=== PATIENT | female | born 1970 | race Caucasian/White ===

== ENCOUNTER 2023-06-20 10:37 | Outpatient (REF) | payer MEDICAID, SELFPAY ==
--- NOTE | ~2023-06-20 | XR_ITS ---
EXAMINATION: XR FINGER, RIGHT CLINICAL INFORMATION: Fifth digit caught in fence COMPARISON: None available. TECHNIQUE: Three views of the right small finger. FINDINGS: No acute visible fracture or dislocation. Mild multi joint arthritic changes. Sclerotic focus along the humeral head articular surface nonspecific though potentially representing bone island. Joint spaces and alignment are otherwise maintained. Soft tissues are unremarkable. XR/XR finger RT min 2V IMPRESSION: 1. No acute visible fracture or dislocation. 2. Mild multi joint arthritic changes. 3. Sclerotic focus along the humeral head articular surface nonspecific though potentially representing bone island.
== END 2023-06-20 10:38 | disposition home or self-care (01) ==
LOC: HO.HHCX 10:37
PROVIDERS: Visit Provider Emergency Medicine
DX: S69.91XD Unspecified injury of right wrist, hand and finger(s), subsequent encounter (principal)
CPT/HCPCS: 73140

== ENCOUNTER 2023-06-20 11:04 | Outpatient (REF) | payer MEDICAID, SELFPAY | END 2023-06-20 11:05 | disposition home or self-care (01) | LOC: HO.HHCL 11:04 | PROVIDERS: Visit Provider Emergency Medicine | DX: Z13.89 Encounter for screening for other disorder (principal) ==

== ENCOUNTER 2023-06-25 18:19 | Outpatient (REF) | payer MEDICAID, SELFPAY ==
[2023-06-26 14:20] LABS: Adenovirus F 40/41 Not Detected (Not Detect.); Astrovirus Not Detected (Not Detect.); Campylobacter Not Detected (Not Detect.); Cryptosporidium Not Detected (Not Detect.); Cyclospora cayetanensis Not Detected (Not Detect.); E. coli EAEC Not Detected (Not Detect.); E. coli EPEC Not Detected (Not Detect.); E. coli ETEC Not Detected (Not Detect.); E. coli STEC Not Detected (Not Detect.); Entamoeba histolytica Not Detected (Not Detect.); Giardia lamblia Not Detected (Not Detect.); Norovirus GI/GII Not Detected (Not Detect.); Plesiomonas shigelloides Not Detected (Not Detect.); Rotavirus A Not Detected (Not Detect.); Salmonella Not Detected (Not Detect.); Sapovirus Not Detected (Not Detect.); Shigella sp./EIEC Not Detected (Not Detect.); Vibrio Not Detected (Not Detect.); Vibrio Cholerae Not Detected (Not Detect.); Yersinia enterocolitica Not Detected (Not Detect.)
== END 2023-06-25 18:20 | disposition home or self-care (01) ==
LOC: HO.HHCLNP 18:19
PROVIDERS: Visit Provider Emergency Medicine
DX: K58.0 Irritable bowel syndrome with diarrhea (principal)
CPT/HCPCS: 87177; 87209; 87338; 87493; 87507

== ENCOUNTER 2023-08-13 11:54 | Outpatient (REF) | payer MEDICAID, SELFPAY ==
--- NOTE | ~2023-08-13 | XR_ITS ---
EXAMINATION: XR ANKLE, RIGHT CLINICAL INFORMATION: Ankle injury, medial pain, worsening chronic Achilles tendon pain. COMPARISON: None available. TECHNIQUE: 5 views of the right ankle. FINDINGS: Spurring of the medial malleolus. 5 mm ossification adjacent to the medial malleolus, suggestive of sequela of trauma, of indeterminate age. Ankle mortise is maintained. No additional discrete fracture is identified. Anterior calcaneal process, 5th metatarsal base appears intact. Large plantar and posterior calcaneal spur. Chronic-appearing calcification/ossification in the region of the mid/distal Achilles tendon, larger measuring 1.6 cm and 1.7 cm respectively, has a chronic appearance. Tibiotalar joint effusion present. Mild ankle soft tissue swelling. XR/XR ankle RT min 3V IMPRESSION: 5 mm ossification adjacent to medial malleolus, from age indeterminate trauma. Tibiotalar joint effusion. Large plantar and posterior calculus spur. Prominent chronic-appearing calcification/ossification in the region of the Achilles tendon.
== END 2023-08-13 11:55 | disposition home or self-care (01) ==
LOC: HO.HHCX 11:54
PROVIDERS: Visit Provider Emergency Medicine
DX: S99.911A Unspecified injury of right ankle, initial encounter (principal)
CPT/HCPCS: 73610

== ENCOUNTER 2023-09-20 10:45 | Outpatient (AMB) | payer MEDICAID, SELFPAY ==
--- NOTE | 2023-09-20 10:54 | A.OFFVIS_ITS ---
Intake Intake Visit Reasons: Mixed incontinence Intake Note: NEW Patient presents today to established treatment for Mixed Incontinence: Meds- Tolterodine Allergies to Antibiotic- No Known Allergies Blood Thinner- Aspirin PVR- 0 mL Nurse Supervisor Required: No Accompanied by: Self / Same As Patient Allergies No Known Allergies Allergy (Verified 09/20/23 11:04) HPI HPI Comments History of Present Illness Details Kari is a 53-year-old female who presents today to the office to establish as a new patient for an evaluation of mixed urinary incontinence. 09/20/2023-- She is present today for an evaluation of mixed urinary incontinence. She was referred to me by her PCP for urinary incontinence. Patient states that her PCP started on tolterodine 4 mg, which she feels that it is making the symptoms worse. Patient states that her bladder symptoms started in 2009 and she was seen by an urologist in 2010 and had some testing; however, she moved from that location and was not able to follow-up with the urologist. She denies nocturia at this time. She wears pads during the day time, and notes that she is constantly leaking even without sensation of the urgency. She denies any frequent urinary tract infections. She denies burning with urination. She denies hematuria. Patient states that she has had recent surgery on Achilles on 08/23/2023, she currently has a cast which limits the ability to do a pelvic exam at this time. Evaluation today--UA-- leukocytes: 0; blood: 0. Plan: Follow up in office Cystoscopy, will perform pelvic exam at that time. Advised the patient to discontinue tolterodine Ordered renal US. [facility] Surgical History History of myringotomy Hx of adenoidectomy Hx of tonsillectomy Hx of total knee replacement History of open head injury History of surgery of head History of surgery on lower extremity Family History Father Adopted Family history not known due to adoption Mother No problems noted. Social History Alcohol intake: current Alcohol intake frequency: holidays/special occasions only Patient Tobacco Use Status: Former Tobacco user Quit Date: 09/2022 Review of Systems Const All systems reviewed & are unremarkable except as noted in HPI and below Reports no additional complaints Eyes Reports no additional complaints ENT Reports no additional complaints Card Denies dyspnea Resp Denies cough and Denies dyspnea GI Reports no additional complaints Reports no additional complaints Musc Reports no additional complaints Skin/Breast Denies rash and Denies unusual bruising Neuro Reports no additional complaints Psych Reports no additional complaints Endo Reports no additional complaints Buck/Lymph Reports no additional complaints Aller/Immun Reports no additional complaints Physical Exam Const General: cooperative, healthy appearing and no acute distress Orientation/consciousness: patient oriented x3 HEENT Head: Yes normal to inspection, Yes normocephalic and Yes atraumatic Eyes Conjunctivae: conjunctivae normal Neck Neck: Yes normal visual inspection and Yes trachea midline Chest Chest palpation & inspection: normal inspection of the chest Resp Effort & Inspection: normal respiratory effort Cardio Rate: regular rate GI Inspection: Yes normal to inspection Palpation (GI): Soft to palpation Skin General skin exam: no rashes or lesions noted Neuro General: patient oriented x3 Extrem Other: Right lower leg- cast General: No edema Psych Appearance: grossly normal Results AMB Urinalysis, Automated UA Leukoctes 0 Daniel/uL Last Edit by LORETO Anderson on 09/20/23 11:33 UA Nitrite Negative Last Edit by LORETO Anderson on 09/20/23 11:33 UA Urobilinogen 0.2 mg/dL Last Edit by LORETO Anderson on 09/20/23 11:3 3 UA Protein 0 mg/dL Last Edit by LORETO Anderson on 09/20/23 11:33 UA pH 7.5 Last Edit by LORETO Anderson on 09/20/23 11:33 UA Blood 0 Mario/uL Last Edit by LORETO Anderson on 09/20/23 11:33 UA Specific [place] 1.005 Last Edit by LORETO Anderson on 09/20/23 11: 33 UA Ketone Negative Last Edit by LORETO Anderson on 09/20/23 11:33 UA Bilirubin 0 mg/dL Last Edit by LORETO Anderson on 09/20/23 11:33 UA Glucose 0 mg/dL Last Edit by LORETO Anderson on 09/20/23 11:33 Results Reviewed Results Reviewed: Laboratory Last Values Urine pH (Auto) 7.5 09/20/23 11:30 Specific [place] (Auto) 1.005 09/20/23 11:30 Urine Protein (Auto) 0 mg/dL 09/20/23 11:30 Glucose (UA)(Auto) 0 mg/dL 09/20/23 11:30 Urine Ketones (Auto) Negative 09/20/23 11:30 Urine Blood (Auto) 0 Mario/uL 09/20/23 11:30 Urine Nitrite (Auto) Negative 09/20/23 11:30 Urine Bilirubin (Auto) 0 mg/dL 09/20/23 11:30 Urine Urobilinogen (Auto) 0.2 mg/dL 09/20/23 11:30 Leukocyte Esterase (Auto) 0 Daniel/uL 09/20/23 11:30 Assessment & Plan Assessment & Plan (1) Urinary incontinence: Code(s): R32 - Unspecified urinary incontinence (2) Pelvic floor weakness: Code(s): N81.89 - Other female genital prolapse Plan Follow up in office Cystoscopy, will perform pelvic exam at that time. Advised the patient to discontinue tolterodine Ordered renal US. Orders: Orders AMB Urinalysis Automated 09/20/23 Z13.9 - Encounter for screening, unspecified AMB Post Void Residual by ultrasound 09/20/23 N39.8 - Other specified disorders of urinary system Patient Instructions: The patient had an opportunity to ask questions regarding treatment plan. All questions were answered. Imaging, Laboratory studies and physical exam results were discussed and reviewed in detail. No major barriers to understanding were identified. The patient expressed understanding and agreement with the above treatment plan. The patient is aware they should contact our office by phone for worsening of their current condition or the appearance of new symptoms. Compliance is encouraged with any medications and followup testing that is ordered. It is a privilege to be allowed the opportunity to participate in the urologic care of your patient. If you have any questions or concerns regarding treatment for the above conditions please do not hesitate to contact me. The office telephone contact is [phone]. This note is constructed in part using voice recognition software. While every effort has been made to ensure accuracy machine biller errors may have been included. Yours sincerely, Rajeev Xavier MD Coding Level of Care Code New Pt Level 4 (30658) Diagnoses Urinary incontinence R32 Pelvic floor weakness N81.89
== END 2023-09-20 11:47 | disposition home or self-care (01) ==
PROVIDERS: PCP Family Medicine; Visit Provider Urology
DX: R32 Unspecified urinary incontinence (principal); N81.89 Other female genital prolapse
CPT/HCPCS: 99204

== ENCOUNTER → 2023-09-20 10:45 | Outpatient (BNVA) | payer MEDICAID, SELFPAY | PROVIDERS: PCP Family Medicine; Visit Provider Urology | DX: N81.89 Other female genital prolapse (principal); R32 Unspecified urinary incontinence | CPT/HCPCS: 81003; 99202 ==

== ENCOUNTER 2024-03-06 13:07 | Outpatient (REF) | payer MEDICAID, SELFPAY ==
[2024-03-06 14:23] LABS: MANUAL DIFF FLAG NO
[2024-03-06 14:33] LABS: Basophils Percent Auto 0.5 % (0-2); Eosinophils Absolute Auto 0.1 X10*3/uL (0.0-0.4); Eosinophils Percent Auto 1.3 % (0-4); Hematocrit 42.7 % (37.0-47.0); Hemoglobin 13.7 g/dl (12.0-16.0); Imm Gran Abs Auto 0.03 X10*3/uL (0.00-0.03); Imm Gran Pct Auto 0.4 % (0.0-0.4); Lymphocytes Absolute Auto 1.8 X10*3/uL (1.2-4.9); Lymphocytes Percent Auto 21.8 % (20-40); Mean Corpuscular HGB Conc 32.1 g/dl (31.0-35.0); Mean Corpuscular Hemoglobin 28.5 pg (27.0-33.0); Mean Platelet Volume 10.3 fL (9.4-12.3); Monocytes Absolute Auto 0.5 X10*3/uL (0.1-1.2); Monocytes Percent Auto 6.2 % (2-11); Neutrophils Absolute Auto 5.9 x10*3/uL (2.0-8.3); Neutrophils Percent Auto 69.8 % (45-73); Platelet Count 284 X10*3/uL (160-400); White Blood Count 8.4 X10*3/uL (4.8-10.8)
[2024-03-06 16:25] LABS: Alanine Aminotransferase 23 U/L (0-31); Albumin Level 4.4 g/dL (3.5-5.0); Alkaline Phosphatase 70 U/L (39-117); Anion Gap 10 (12-20); Aspartate Amino Transferase 12 U/L (5-31); Bilirubin Total 0.5 mg/dL (0.0-1.0); Blood Urea Nitrogen 19 mg/dL (9-16); C Reactive Protein 2.44 mg/dL (< or = 0.50); Calcium 9.8 mg/dL (8.4-10.2); Carbon Dioxide 31 mmol/L (22-29); Chloride 104 mmol/L (96-108); Cholesterol 196 mg/dL (<200); Estimated Glomerular Filt Rate > 60; Glucose Fasting 101 mg/dL (60-99); HDL Cholesterol 58 mg/dL (>40); LDL Cholesterol Calculated 122 mg/dL (<100); Potassium 3.9 mmol/L (3.3-5.1); Sodium 141 mmol/L (135-145); Total Protein 7.4 g/dL (6.5-8.0); Triglycerides 82 mg/dL (<150)
[2024-03-06 16:32] LABS: TSH reflex Free T4 2.09 uIU/mL (0.32-4.0)
[2024-03-07 19:58] LABS: Transglutaminase Ab IgG <1.0 U/mL
[2024-03-10 11:38] LABS: VITAMIN D (1,25 OH) D3 63 pg/mL; Vit D (1,25-Dihydroxy) Total 63 pg/mL (18-72); Vitamin D (1,25 OH) D2 <8 pg/mL
== END 2024-03-06 13:08 | disposition home or self-care (01) ==
LOC: HO.CHCLDS 13:07
PROVIDERS: Visit Provider Family Medicine
DX: E66.09 Other obesity due to excess calories (principal); Z68.31 Body mass index [BMI] 31.0-31.9, adult; R19.7 Diarrhea, unspecified
CPT/HCPCS: 36415; 80053; 80061; 82652; 84443; 85025; 86140; 86364

== ENCOUNTER 2025-06-30 09:53 | Outpatient (REF) | payer MEDICAID, SELFPAY ==
--- OUTSIDE RECORDS SUMMARY | 2025-06-26 10:00 | XMS_ITS | Encounter Summary ---
Author Organization [facility] Address [address] [place] [address] [address] [place] [address] Care Team Providers Care Mis Director Name Role Phone Linda Leahy MD Primary Care Provider [phone] Reason for Visit * Reason Comments Ear Lavage Encounter Details Date Type Department Care Team (Latest Contact Info) Description 06/26/2025 10:00 AM EDT Clinical Support [facility] [address] [place] [address] Brigitte Segura RN Tinnitus, right ear [H93.11] Social History Tobacco Use Types Packs/Day Years Used Date Smoking Tobacco: Former Cigarettes Passive Smoke Exposure: Past Smokeless Tobacco: Never Depression Answer Date Recorded Patient Health Questionnaire-9 Score 20 06/19/2025 Patient Health Questionnaire-9 Score 20 06/19/2025 Last PHQ-9: Questionnaire Data Not on file 0 06/19/2025 Housing Stability Answer Date Recorded What is your housing situation today? I have housing today, but I am worried about losing housing in the future 06/19/[address] you li ve. Do you have problems with any of the following? None of the above 06/19/2025 Food Insecurity Answer Date Recorded Within the past 12 months, y ou worried that your food would run out before you got money to buy more: Often true 06/19/2025 Within the past 12 months,th e food you bought just didn't last and you didn't have enough money to get more: Often true 06/2025 Transportation Answer Date Recorded In the past 12 months, has l ack of transportation kept you from medical appts, meetings, work or from getting things needed for daily living? Yes, it has kept me from medical appointments or getting medications. 06/19/2025 Utilities Answer Date Recorded In the past 12 months, has t he electric, gas, oil or water company threatened to shut off services in your home? Yes 06/19/2025 Depression Answer Date Recorded Patient Health Questionnaire-2 Score 5 06/19/2025 Internet Access Answer Date Recorded Internet Access Q1 Yes 06/19/2025 Internet Access Q2 Not on file 06/19/2025 Comments Unknown Sex and Gender Information Value Date Recorded Sex Assigned at Female 05/08/2023 9:26 AM EDT Legal Sex Female 9:22 AM EDT Gender Identity Female 05/08/2023 9:26 AM EDT Sexual Orientation Straight 03/10/2024 2: 39 PM EDT documented as of this encounter Progress Notes * Brigitte Segura RN - 06/26/2025 10:00 AM EDT Kari Nelson is a 55 y.o. female who presents today for an ear lavage. Kari Nelson endorses diminishedhearing in the left ear The patient has been using ear drops to loosen wax prior to this visit. Thepatient denies ear pain. Objective Auditory canal(s) of the left ear are completely obstructed with cerumen. Cerumen was removed using gentle irrigation and soft plastic curettes. Irrigated with 1 part water and 1 part hydrogen peroxide. Tympanic membranes are intact following the procedure. Auditory canalsare normal. Assessment/Plan Cerumen Impaction without otitis externa. Care instructions given. Home treatment: none. Follow-up as needed. documented in this encounter Plan of Treatment Upcoming Encounters Date Type Department Care Team (Late st Contact Info) Description 08/21/2025 9:45 AM EDT Office Visit [facility] [address] [place] [address] Linda Leahy MD [address] [place] [address] documented as of this encounter Visit Diagnoses Diagnosis Tinnitus, right ear [H93.11] documented in this encounter Additional Health Concerns Assessment Noted Time PHQ-9 Depression Total Score: 20 025 9:20 AM EDT documented as of this encounter Care Teams Mis Director Relationship Specialty Start Date End Date Linda Leahy MD [address] [place] [address] PCP - General Family Medicine 07/19/23 documented as of this encounter
--- OUTSIDE RECORDS SUMMARY | 2025-06-30 11:03 | XMS_ITS | Clinical Summary ---
Author Organization [facility] Address [address] [facility] [address] [place] [address] Phone Care Team Providers Care Business Applications Manager Name Role Phone Marko Manriquez Tatiana DO Unavailable [phone] Matthias Barber MD Primary Care Prov ider Allergies Active Allergy Reactions Criticality Noted Date Comments Diphenhydramine Unknown 11/08/2010 Oxycodone 05/08/2023 PATIENT DOES NOT WANT ANY NARCOTICS Penicillins Unknown 11/08/2010 Medications orphenadrine (NORFLEX) 100 mg tablet 100 mg daily. Active cyclobenzaprine (FLEXERIL) 10 MG tablet Take 10 mg by mouth 2 (two) times a day as needed. Active fluticasone propionate (FLONASE) 50 mcg/actuation nasal spray 1 spray by Nasal route daily. Active gabapentin (NEURONTIN) 300 MG capsuleIndications :Intractable migraine with aura with status migrainosus,Fibrom yalgia Take 1 capsule (300 mg total) by mouth nightly at bedtime. 90 capsule 3 4 Active tolterodine (DETROL LA) 4 MG 24 hr capsule Take 4 mg by mouth daily. Active terbinafine HCL (LAMISIL) 250 mg tablet Take 1 tablet by mouth every morning. 4 Active naproxen (NAPROSYN) 500 MG tablet Take 500 mg by mouth. 1 Active XOPENEX HFA 45 mcg/actuation inhaler inhale 2 puffs by mouth every 6 hours as needed for shortness of breath Active melatonin 5 mg Tab Take 5 mg by mouth nightly at bedtime as needed. 1 Active omeprazole (PRILOSEC) 20 MG capsule Take 1 capsule by mouth daily as needed. 3 Active diclofenac sodium (VOLTAREN) 75 MG EC tabletIndications: Intractable migraine with aura with status migrainosus Take 1 tablet (75 mg total) by mouth 2 (two) times a day as needed (Migraine). 30 tablet 5 4 Active galcanezumab-gnlm (EMGALITY) 120 mg/mL subcutaneous injectionIndicatio ns:Intractable migraine with aura with status migrainosus Inject 1 mL (120 mg total) under the skin every 30 (thirty) days. 1 mL 11 4 Active rizatriptan (MAXALT-PROFILE GRINDER) 10 MG disintegrating tabletIndications: Intractable migraine with aura with status migrainosus Take 1 tablet (10 mg total) by mouth as needed for migraine. May repeat in 2 hours if needed. Do not exceed 20mg in a day. 9 tablet 11 4 Active Active Problems Problem Noted Date Diagnosed Date Elbow pain 10/13/2010 Overview (01/02/2015): Elbow pain Immunizations Immunization Administration Dates Next Due COVID-19 (Pre-09/03) Aleks Vaccine, rS-Ad26, P F 04/02/2021 COVID-19 (Pre) Moderna Vaccine, mRNA, PF 1 12/27/2020 INFLUENZA, SPLIT VIRUS, TRIVALENT PF 07/28/2015 Influenza Quadrivalent MDCK Preservative Free IM 11/29/2017 Influenza Quadrivalent Preservative Free IM 10/13,07/14/2016 Pneumococcal polysaccharide PPSV23 02/08/2016 Tdap 03/09/2015 Social History Tobacco Use Types Packs/Day Years Used Date Smoking Tobacco: Every Day Cigarettes Smokeless Tobacco: Never Alcohol Use Standard Drinks/Week Comments No 0 (1 standard drink = 0.6 oz pur e alcohol) rare Education Answer Date Recorded Are you interested in more education? Not on zane e 03/08/2023 Are you concerned about learning? Not on file 03/08/2023 No 03/08/2023 No 03/08/2023 Digital Access Answer Date Recorded No 04/09/2023 No 04/09/2023 No 04/09/2023 Reliable internet access at home? Not on file 04/09/2023 Device with a working camera? Not on file Comments Unknown Sex and Gender Information Value Date Recorded Sex Assigned at Female 03/27/2019 10:26 PM EDT Legal Sex Female 7:13 PM EST Gender Identity Female 03/27/2019 10:26 PM EDT Sexual Orientation Straight 03/27/2019 10 :26 PM EDT Last Filed Vital Signs Vital Sign Reading Time Taken Comments Blood Pressure 138/92 01/29/2020 7:15 PM EDT Pulse 98 01/29/2020 8:28 PM EDT Temperature 37.2 C (99 F) 01/29/2020 6:28 PM EDT Respiratory Rate 20 01/29/2020 5:56 PM EDT Oxygen Saturation 99% 01/29/2020 8:15 PM EDT Inhaled Oxygen Concentration - - Weight 66.7 kg (147 lb 0.8 oz) 01/29/2020 5:56 P M EDT Height 162.6 cm (5' 4 ) 01/29/2020 5:56 PM EDT Body Mass Index 25.24 01/29/2020 5:56 PM EDT Plan of Treatment Health Maintenance Due Date Last Done Comments SMOKING Hx and SMOKELESS TOBACCO SCREENING 1985 HIV ONE-TIME SCREENING (18-6 5 YEARS) 1990 MAMMOGRAM 2012 PNEUMOCOCCAL VACCINES (50+ years) (2 of 2 - PCV) 02/07/2017 02/08/2016 COLOGUARD 2017 FIT TEST 2017 SIGMOIDOSCOPY 2017 VIRTUAL COLONOSCOPY 2017 FOBT 12/03/2018 12/03/2017 ZOSTER VACCINES (1 of 2) 2022 PAP SMEAR 05/19/2022 05/19/2019, 06/17/1996 DEPRESSION SCREENING 05/01/2023 05/01/2022 COVID-19 VACCINE (3 - 2023-2 5 season) 2024 10/26/2021, 04/02/2021 Adult Td,Tdap Booster 03/09/2025 03/09/2015 COLONOSCOPY 02/01/2028 01/31/2018 COLORECTAL CANCER SCREENING 02/01/2028 LIPID PANEL 03/06/2029 03/06/2024, 12/01/2022 HEPATITIS C SCREENING Completed 05/20/2021 HEPATITIS A VACCINES Aged Out No long er eligible based on patient's age to complete this topic HIB VACCINES Aged Out No longer eligi ble based on patient's age to complete this topic MENINGOCOCCAL VACCINES (ACWY) Aged Out No longer eligible based on patient's age to complete this topic MENINGOCOCCAL VACCINES (B) Aged Out N o longer eligible based on patient's age to complete this topic Medical Devices Not on file Procedures Procedure Name Priority Date/Time Associated Diagnosis Comments PAP TEST Routine 05/19/2019 12:00 AM EDT ENDOSCOPY, COLON 01/31/2018 10:3 8 AM EDT FECAL OCCULT BLOOD, MULTIPLE Routine 12/03/2017 2:15 PM EST Diarrhea, unspecified type from Last 3 Months or Most Recently Relevant to Health Maintenance Results * Pap Smear (05/19/2019 12:00 AM EDT) 05/19/2019 05/20/2019 10: 01 AM EDT Narrative SEE NARRATIVE - 05/23/2019 3:05 PM EDT [address] [address] Hydrocrane Operator: Brittani Akins MD PLANT HR MANAGER Cytology Report FINAL DIAGNOSIS A. PAP SMEAR (SUREPATH) CE: SPECIMEN ADEQUACY: Satisfactory for evaluation; transformation zone present. INTERPRETATION: NEGATIVE FOR INTRAEPITHELIAL LESION OR MALIGNANCY. Electronically Signed Out By: Gabriella AGARWAL(ASCP) The Pap test is a screening test primarily for squamous cancers and precursors and has associated false-negative and false-positive results. New technologies such as liquid-based preparations may decrease but will not eliminate all false-negative results. Regular sampling and follow-up of unexplained clinical signs and symptoms are recommended to minimize false negative results. PROCEDURES/ADDENDA HPV Testing (Requested) Ordered Date: 05/20/2019 A. PAP SMEAR (SUREPATH) CE: Human Papilloma Virus Test Negative for high-risk human papillomavirus types 16, 18, 45 and the Other high risk probe set (Includes 31, 33, 35, 39, 51, 52, 56, 58, 59, 66, 68) by [employer] HR-HPV analysis. Clinical correlation is advised. This HPV test was performed at [facility], [address] [place] [address]. This test has been FDA approved for SurePath cervical cytology specimens. The accuracy and precision of this test for all other specimen sources has been verified in the Cytopathology Laboratory of the [facility] and has not been cleared or approved by the U.S. Food and Drug Administration. Clinical correlation is advised. CLINICAL HISTORY Date of Last Menstrual Period: Not Provided Menstrual History: Post Menopausal Other Clinical Conditions: Screening Pap SPECIMEN SOURCE A: PAP SMEAR (SUREPATH) CE Patient Name: KARI TOLEDO : 1970 (Age: 49) Sex: F Institution: [facility] Location: [facility] Date of Collection: 05/19/2019 Date of Reported: 05/23/2019 09:16 Results to: Matthias Gunter us Matthias Gunter MD CYTOLOGY ORDERABLE S Edited Result - Final SEE NARRATIVE * ENDOSCOPY, COLON (01/31/2018 10:38 AM EDT) Narrative Transcriptions Francisco Silva MD - 01/31/2018 10:38 AM EDT Patient Name: Kari Toledo Attending MD:: FRANCISCO SILVA MD Procedure Date: 01/31/2018 10:38 AM Date of : 1970 Age: 47 Admit Type: Outpatient Gender: Female Room: [place] [address] Referring MD: Matthias Gunter MD Exam Type: Colonoscopy Indications: This is the patient's first colonoscopy, Clinically significant diarrhea of unexplained origin Medications: Propofol per Anesthesia Procedure: Informed consent was obtained from the patient after discussion of the indications, limitations,alternatives, benefits, and risks of the procedure. Risksspecifically discussed include but are not limited to medication reactions, missed lesions, bleeding, perforation, orthe need for emergent surgery. Throughout the procedure, the patient's blood pressure, pulse, end-tidal CO2, and oxygen saturations were monitored continuously. The Olympus adult variable colonoscope [id number] #5 was introduced through the anus and advanced to theterminal ileum. The colonoscopy was performed withoutdifficulty. The patient tolerated the procedure well. The qualityof the bowel preparation was good. The bowel preparationused was GoLYTELY. Complications: No immediate complications. Estimated blood loss:None. Findings: The perianal and digital rectal examinations werenormal. Pertinent negatives include no palpable rectallesions. The entire examined colon appeared normal on direct and retroflexion views. The terminal ileum appeared normal. Biopsies were taken with a cold forceps for histology. Retroflexion in the right colon was performed. Biopsies for histology were taken with a cold forcepsfrom the ascending colon, transverse colon and descendingcolon for evaluation of microscopic colitis. Impression: - The entire examined colon is normal on direct and retroflexion views. - The examined portion of the ileum was normal.Biopsied. - Biopsies were taken with a cold forceps from the ascending colon, transverse colon and descending colonfor evaluation of microscopic colitis. Recommendation: - Await pathology results. - Use fiber, for example Citrucel, Fibercon, Konsyl or Metamucil. - Repeat colonoscopy in 10 years for screeningpurposes. FRANCISCO SILVA MD 01/31/2018 11:12:54 AM This report has been signed electronically. Number of Addenda: 0 Note Initiated On: 01/31/2018 10:38 AM Procedure Code(s): --- Professional --- 40461, Colonoscopy, flexible; with biopsy, single or multiple --- Technical --- 82345, Colonoscopy, flexible; with biopsy, single or multiple Diagnosis Code(s): --- Professional --- R19.7, Diarrhea, unspecified --- Technical --- R19.7, Diarrhea, unspecified CPT copyright 2016 [employer]. All rights reserved. The codes documented in this report are preliminary and upon outpatient coder reviewmay be revised to meet current compliance requirements. [address] [place] [address] Matthias Gunter MD GI PROCEDURE ORDER RIK Final Result * Fecal occult blood, multiple (12/03/2017 2:15 PM EST) FECAL OCC BLD 1 DATE [facility] Occult bld, stool, #1 Negative Negative [facility] Stool (Stool) 12/03/2017 2:1 5 PM EST 12/03/2017 2:18 PM EST us Luzma Canseco PA-C BODY FLUIDS AND STOOLS ORDERABL ES Final Result [address] [address] from Last 3 Months or Most Recently Relevant to Health Maintenance Insurance MEDICARE PART A & B CARE MEDICARE REPLACEMENT ALYSSA MARY [facility] MEDICARE PART A & B Member Subscriber Plan / Payer (Ef fective 2024-Present) Name:Izabel Toledon Member ID:[id number] Relation to Subscriber:Self Name:Kari Toledo Subscriber ID:[id number] Payer ID:[id number] Group ID:Not on file Type:Medicare Address: [employer] [address] [place] [id number] [place] [address] CARE MEDICARE REPLACEMENT MEDICARE PART A & B CARE MEDICARE REPLACEMENT MEDICARE PART A & B Member Subscriber Plan / Payer (Ef fective 2024-) Name:Kari Toledo Member ID:[id number] Relation to Subscriber:Self Name:Toledo Kari Subscriber ID:[id number] Payer ID:[id number] Group ID:Not on file Type:Medicare Address: [employer] [address] [place] [address] [place] [address] CARE MEDICARE REPLACEMENT MEDICARE PART A & B [facility] ONE CARE MEDICARE REPLACEMENT MEDICARE PART A & B [facility] ONE CARE MEDICARE REPLACEMENT Advance Directives For more information, please contact: [phone] (9AM - 5PM [facility], Sunday-Sunday) Documents on File Type Date Recorded Patient Broke Man Expl anation Healthcare Proxy 05/01/2022 3:05 PM Edwin Toledo Health Care Proxy - [email or web address].pdf Healthcare Agents on File Name Relationship Healthcare Agent Relationship Communication Edwin Lowery Jr. Friend Alternate H ealthcare Agent (Proxy form on file) Bela Toledo Daughter .Primary Health Care Agent (Proxy form on file) Care Teams Business Applications Manager Relationship Specialty Start Date End Date Matthias Barber MD [address] [place] [address] [email or web address] PCP - General Family Medicine 01/11/20 Marko Manriquez DO [address] [place] [address] Orthopedics & Sports Medicine, [place] [address] [email or web address] Historical LMR Provider 08/29/17 Additional Source Comments The information contained in this document represents components of the legal health record. It is not the complete legal health record.[facility]
[2025-06-30 13:58] LABS: MANUAL DIFF FLAG NO
[2025-06-30 14:07] LABS: Hematocrit 43.2 % (37.0-47.0); Hemoglobin 13.7 g/dl (12.0-16.0); Imm Gran Abs Auto 0.01 X10*3/uL (0.00-0.03); Imm Gran Pct Auto 0.2 % (0.0-0.4); Lymphocytes Absolute Auto 1.7 X10*3/uL (1.2-4.9); Mean Corpuscular HGB Conc 31.7 g/dl (31.0-35.0); Mean Corpuscular Hemoglobin 27.6 pg (27.0-33.0); Mean Corpuscular Volume 87.1 fL (80.0-98.0); NRBC Abs Auto 0.000 X10*3/uL (0.0-0.012); NRBC Pct Auto 0.0 /100WBC (0.0-0.2); Platelet Count 246 X10*3/uL (160-400); Red Blood Count 4.96 X10*6/uL (4.20-5.50); White Blood Count 5.6 X10*3/uL (4.8-10.8)
[2025-06-30 14:24] LABS: Iron 83 mcg/dL (30-160); Percent Iron Saturation 27 % (15-50); Total Iron Binding Capacity 309 mcg/dL (228-428); Unsaturated Iron Binding 226 ug/dL
[2025-07-01 08:46] LABS: HBS Num1 0.00 mIU/mL (0-7.99); HBc Num1 0.04 S/CO (0.00-0.79); HBsAGNum1 0.36 S/CO (0.00-0.99); HIV Num 1 0.05 S/CO (0.00-0.99); Hepatitis B Surface Antigen Negative (Negative); ~HepC Num1 0.10 S/CO (0.00-0.79); ~Hepatitis B Surface Antibody NONREACTIVE (Nonreactive); ~Hepatitis C Antibody Nonreactive (Nonreactive)
== END 2025-06-30 09:54 | disposition home or self-care (01) ==
LOC: HO.CHCLDS 09:53
PROVIDERS: Visit Provider Family Medicine
DX: H93.11 Tinnitus, right ear (principal); Z13.9 Encounter for screening, unspecified; Z12.4 Encounter for screening for malignant neoplasm of cervix
CPT/HCPCS: 36415; 83540; 84443; 85025; 86592; 86704; 86706; 86803; 87340; 87389; 87626; 88175

== ENCOUNTER → 2025-08-22 08:15 | Outpatient (BNV) | payer OTHER, SELFPAY | PROVIDERS: PCP Family Medicine; Visit Provider Internal Medicine | DX: Z12.31 Encounter for screening mammogram for malignant neoplasm of breast (principal) | CPT/HCPCS: 77063; 77067 ==

== ENCOUNTER 2025-08-22 08:17 | Outpatient (REF) | payer OTHER, SELFPAY ==
--- OUTSIDE RECORDS SUMMARY | 2025-08-22 08:20 | XMS_ITS | Encounter Summary ---
Author Organization [employer] Address [address] [place] [address] 7 [place] [address] Care Team Providers Care Rag Grader Name Role Phone Linda Leahy MD Primary Care Provider [phone] Reason for Visit * Reason Onset Date Comments chart prep 08/20/2025 Encounter Details Date Type Department Care Team ([facility] Contact Info) Description 08/20/2025 Telephone [facility] MED [facility] PEDS [address] [place] [address] Linda Leahy MD [address] [place] [address] chart prep Social History Tobacco Use Types Packs/Day Years [...] Access Q2 Not on file 06/19/2025 Comments No Sex and Gender Information Value Date Recorded Sex Assigned at Female 05/08/2023 9:26 AM EDT Legal Sex Female 9:22 AM EDT Gender Identity Female 05/08/2023 9:26 AM EDT Sexual Orientation Straight 03/10/2024 2: 39 PM EDT documented as of this encounter Miscellaneous Notes * Telephone Encounter - Shilpa Graham MA - 08/20/2025 1:58 PM EDT Chart Prep Labs: not applicable Images: not applicable Referrals: not applicable Vaccines due: Covid, Flu, and Hep B Screenings: mammogram Overdue care gaps: Not applicable documented in this encounter Plan of Treatment Upcoming Encounters Date Type Department Care Team ([facility] st Contact Info) Description 10/12/2025 1:45 PM EST Office Visit [facility] MED & PEDS [address] [place] [address] Linda Leahy MD [address] [place] [address] documented as of this encounter Visit Diagnoses Not on filedocumented in this encounter Additional Health Concerns Assessment Noted Time PHQ-9 Depression Total Score: 20 025 9:20 AM EDT documented as of this encounter Care Teams Rag Grader Relationship Specialty Start Date End Date Linda Leahy MD [address] [place] [address] PCP - General Family Medicine 07/19/23 documented as of this encounter
--- OUTSIDE RECORDS SUMMARY | 2025-08-22 08:20 | XMS_ITS | Encounter Summary ---
Author Organization [employer] Address [address] [place] [address] 7 [place] [address] Care Team Providers Care Sail Finisher Hand Name Role Phone Linda Leahy MD Primary Care Provider [phone] Reason for Visit * Reason Comments Med Refill Encounter Details Date Type Department Care Team ([facility] Contact Info) Description 08/17/2025 Refill [facility]EDS [address] [place] [address] Linda Leahy MD [address] [place] [address] Social History Tobacco Use Types Packs/Day Years [...] PM EDT documented as of this encounter Plan of Treatment Upcoming Encounters Date Type Department Care Team (Late st Contact Info) Description 10/12/2025 1:45 PM EST Office Visit [facility] MED & PEDS [address] [place] [address] Linda Leahy MD [address] [place] [address] documented as of this encounter Visit Diagnoses Not on filedocumented in this encounter Additional Health Concerns Assessment Noted Time PHQ-9 Depression Total Score: 20 025 9:20 AM EDT documented as of this encounter Care Teams Sail Finisher Hand Relationship Specialty Start Date End Date Linda Leahy MD [address] [place] [address] PCP - General Family Medicine 07/19/23 documented as of this encounter
--- OUTSIDE RECORDS SUMMARY | 2025-08-22 08:20 | XMS_ITS | Clinical Summary ---
Author Organization [employer] Address [address] [place] [address] [address] [place] [address] Care Team Providers Care Counseling Case Manager Name Role Phone Linda Leahy MD Primary Care Provider [phone] Allergies Active Allergy Reactions Criticality Noted Date Comments Diphenhydramine 05/08/2023 Oxycodone 05/08/2023 PATIENT DOES NOT WANT ANY NARCOTICS Penicillins Swelling 05/08/2023 Medications * This document contains information received from the source organization and may not represent a complete record from that organization. omeprazole (PriLOSEC) [address] capsuleIndication s:Dyspepsia Take 20 mg by mouth before breakfast. 06/20/20 23 Active galcanezumab (Emgality) 120 MG/ML auto-injector Inject 120 mg under the skin every 30 (thirty) days. 06/19/20 24 Active rizatriptan TRAINING PROFESSIONAL (Maxalt-TRAINING PROFESSIONAL) 10 MG disintegrating tablet Take 10 mg by mouth if needed. 09/24/20 24 Active albuterol 108 (90 Base) MCG/ACT inhalerIndication s:Reactive airway disease without complication, unspecified asthma severity, unspecified whether persistent Inhale 2 puffs every 4 (four) hours if needed for wheezing. 18 g 2 06/19/20 25 026 Active cyclobenzaprine (Flexeril) 10 MG tabletIndications :Pain Take 0.5 tablets (5 mg) by mouth if needed in the morning, at noon, and at bedtime for muscle spasms. 90 tablet 5 06/19/20 25 Active dicyclomine (Bentyl) 10 MG capsuleIndication s:Irritable bowel syndrome with diarrhea Take 1 capsule (10 mg) by mouth 4 times daily. 120 capsule 5 06/19/20 25 Active busPIRone (Buspar) 7.5 MG tabletIndications :HERMELINDA (generalized anxiety disorder) Take 1 tablet (7.5 mg) by mouth 2 times daily. 60 tablet 2 07/01/20 25 025 Active gabapentin (Neurontin) 300 MG capsule TAKE 1 CAPSULE BY MOUTH EVERY NIGHT AT BEDTIME 270 capsule 07/15/20 25 Active naproxen (Naprosyn) 500 MG tablet TAKE 1 TABLET BY MOUTH EVERY 12 HOURS 60 tablet 07/21/20 25 Active Myrbetriq 50 MG 24 hr tablet TAKE 1 TABLET(50 MG) BY MOUTH AT BEDTIME. DO NOT CRUSH, CHEW, OR SPLIT 30 tablet 1 08/18/20 25 Active diclofenac (Voltaren) 75 MG EC tablet Take 1 tablet (75 mg) by mouth 2 times daily. Do not crush, chew, or split.TAKE 1 TABLET BY MOUTH TWICE DAILY NEEDED FOR MIGRAINE 60 tablet 08/18/20 25 Active loperamide (Imodium) 2 MG capsule 06/19/20 25 Active mirabegron ER (Myrbetriq) 50 MG 24 hr tablet Take 1 tablet (50 mg) by mouth at bedtime. Do not crush, chew, or split. 30 tablet 1 06/19/20 25 025 Discontinued loperamide (Imodium A-D) 2 MG tabletIndications :Irritable bowel syndrome with diarrhea Take 1-2 tablets (2-4 mg) by mouth if needed in the morning, at noon, in the evening, and at bedtime for diarrhea. 60 tablet 06/19/20 25 025 Discontinued diclofenac (Voltaren) 75 MG EC tablet TAKE 1 TABLET BY MOUTH TWICE DAILY NEEDED FOR MIGRAINE 60 tablet 07/15/20 25 025 Discontinued(R eorder (will not trigger notification to Pharmacy)) Active Problems Problem Noted Date Diagnosed Date Well woman exam 06/30/2025 Cervical cancer screening 06/30/2025 Assessment & Plan (06/30/2025 9:47 AM EDT): 55 y.o. here for cervical cancer screening. Will continue monitoring following ASCCP guidelines. Severe depression (CMS/HCC) 06/19/2025 HERMELINDA (generalized anxiety disorder) 06/19/2025 Assessment & Plan (06/30/2025 9:48 AM EDT): Patient with hx of bipolar disorder SSRi contraindicated, will start buspar, has appt with therapy. Consider mood stabilizer or SGA. Tinnitus, right ear 03/12/2024 Chronic pain of both knees 07/19/2023 Assessment & Plan (07/19/2023 4:55 PM EDT): Following with ortho in [place] needs a referral, placed Onychomycosis 07/19/2023 Assessment & Plan (03/10/2024 2:51 PM EDT): Prescribing Lamisil and Kenalog for foot and toe nail symptoms. Relevant Medication Terbinafine (Lamisil) 250 MG Tablet Triamcinolone(Kenalog) 0.5% Cream Assessment & Plan (07/19/2023 4:55 PM EDT): Bilateral toe with nail changes, will check liver function if normal will send trial of diflucan Diarrhea 07/19/2023 Mixed incontinence urge and stress 07/19/2023 Assessment & Plan (07/19/2023 4:57 PM EDT): Patient with mixed incontinence, active leakage on pelvic exam, she will be referred to urology and other specialist but at this time has the medical necessity for pullsups. Class 1 obesity due to exces s calories without serious comorbidity with body mass index (BMI) of 31.0 to 31.9 in adult 07/19/2023 Assessment & Plan (03/12/2024 10:19 AM EDT): Discussed calorie deficit, recommended reduction of 20-30% of maintenance calories; hazmat truck driver referral offered. Recommended to decrease soda and sugary beverage consumption. Recommended at least 20 g per meal of protein to assist with satiety. Recommended at least 150 min/week of moderate intensity exercise. Assessment & Plan (07/19/2023 4:55 PM EDT): Discussed calorie deficit, recommended reduction of 20-30% of maintenance calories; hazmat truck driver referral offered. Recommended to decrease soda and sugary beverage consumption. Recommended at least 20 g per meal of protein to assist with satiety. Recommended at least 150 min/week of moderate intensity exercise. Bipolar disorder, unspecified (CMS/HCC) 07/19/20 23 Assessment & Plan (07/19/2023 4:56 PM EDT): Seen by , concern for bipolar disorder, + mood disorder questionnaire, referral to psych, avoid SSRI, if needed can trial SGA Assessment & Plan (07/19/2023 3:49 PM EDT): Assessment: Patient with history of bipolar, self harm, suicide attempt, and 1 year inpatient hospitalization. Today Kari endorsed depression (depressed mood, anhedonia, sleep disturbance, low motivation, poor appetite, feelings of guilt, difficulty concentrating, and restlessness) and increase in intensity and frequency of manic episodes (periods of elevated mood, inflated self esteem, decreased need for sleep, pressured talking, racing thoughts, distractibility, hypersexual behavior, and high risk behavior). Depression symptoms occur daily and manic symptoms occur in cycles. Kari did not provide approximate length of manic periods. PHQ-9 was administered, patient scored 22. MDQ was administered patient scored a 13 and reported several symptoms have occurred at the same time. Screenings indicate severe impact on social and occupational functioning. Symptoms are in the context of bio-psychosocial stressors of trauma in childhood, and strained relationship. Patient will benefit from OP therapy and psychiatry. At this time Kari Nelson meets criteria for Visit Diagnoses: Problem List Items Addressed This Visit Other Bipolar disorder, unspecified (CMS/HCC) Excoriation, neurotic Patient ready to address current needs Yes Strengths- Kari has great insight on her symptoms and a family that is supportive. She is in the action stage of change PLAN: 1. Follow up with [facility]: Recommended for follow-up: As needed 2. Patient goal is to engage in OP therapy and psychiatry 3. Behavioral Recommendations a. OP therapy b. Psychiatry c. CB services if needed while on the OP therapy waitlist Excoriation, neurotic 07/19/2023 Irritable bowel syndrome with diarrhea Assessment & Plan (07/19/2023 4:55 PM EDT): Patient concern of IBS-D, will send testing and will refer to GI for further eval Migraine 05/08/2023 Assessment & Plan (05/08/2023 10:19 AM EDT): Currently followed by Neurologist - Dr. Saulo Gaming Continues on current medication regimen: Ajovy 225mg/1.5mL monthly (Rx through [facility]) Sumatriptan 25mg daily PRN (PCP) Restless leg syndrome 05/08/2023 Assessment & Plan (05/08/2023 10:19 AM EDT): Continues with gabapentin 300mg nightly Anxiety and depression 05/08/2023 Assessment & Plan (05/08/2023 1:47 PM EDT): Assessment: Patient with daily symptoms of no motivation, difficulties focusing, inability to fall and stay asleep, fluctuating energy levels, poor appetite, feeling guilty, fluctuating speech and movement. She denies SI/HI. She reports episodes of kenji which include levels of high energy, pressured speech and difficulties focusing. She reports carrying the diagnosis of Bipolar I. Patient will benefit from OP therapy and a psychopharmacology referrals. Patient has not been assigned a PCP at this time. At this time Kari Nelson meets criteria for Visit Diagnoses: Problem List Items Addressed This Visit Other Anxiety and depression Rule out- Bipolar I Patient ready to address current needs Yes Strengths include motivation to obtain both medical and behavioral health services. PLAN: 1. Follow up with [facility]: Not recommended for follow-up 2. Patient goal is be connected to behavioral health services 3. Behavioral Recommendations a. Patient will engage in OP therapy, once established b. Patient will engage with medical care, once PCP established c. Patient may contact [facility], if needed Resolved Problems Problem Noted Date Diagnosed Date Resolved Date Tinea corporis 07/19/2023 06/19/2025 Assessment & Plan (07/19/2023 4:58 PM EDT): Will send topical terbinafine. Encounters * This document contains information received from the source organization and may not represent a complete record from that organization. Date Type Department Care Team Description 08/20/[address] [facility] [address] [place] [address] Linda Leahy MD chart prep 08/17/[address] [facility] [address] [place] [address] Linda Leahy MD 08/17/[address] [facility] [address] [place] [address] Linda Leahy MD 08/13/2025 Patient Outreach [facility] [address] [place], [place] [phone] Linda Leahy MD Pre-visit Planning (Pre visit planning LVM ) 08/03/[address] [facility] [address] [place] [address] Linda Leahy MD Reactive airway disease without complication, unspecified asthma severity, unspecified whether persistent 07/22/[address] [facility] [address] [place] [address] Linda Leahy MD 07/20/[address] [facility] [address] [place] [address] Apryl Mayer MD 07/14/[address] [facility] [address] [place] [address] Linda Leahy MD 07/13/[address] [facility] [address] [place] [address] Lidna Leahy MD 07/07/2025 Results Follow-Up [facility] [address] [place], [place] [phone] Linda Leahy MD Pap Smear, HPV High Risk with Reflex to Subtypes 07/01/2025 Results Follow-Up [facility] [address] [place], [place] [phone] Linda Leahy MD CBC auto differential, Iron And Total Iron Binding Capacity, TSH W/Reflex to FT4, Additional followed-up results: 7 06/30/2025 9:20 AM EDT Procedure Visit [facility] [address] [place] [address] Linda Leahy MD Cervical cancer screening (Primary Dx); Well woman exam; HERMELINDA (generalized anxiety disorder) 06/30/2025 Travel 06/26/2025 10:00 AM EDT Clinical Support [facility] [address] [place] [address] Brigitte Segura RN Tinnitus, right ear [H93.11] 06/26/2025 Travel 06/23/[address] [facility] [address] [place] [address] Linda Leahy MD 06/22/[address] [facility] [address] [place] [address] Linda Leayh MD Appointment Request 06/19/2025 9:15 AM EDT Office Visit [facility] [address] [place] [address] Linda Leahy MD Other migraine without status migrainosus, not intractable (Primary Dx); Reactive airway disease without complication, unspecified asthma severity, unspecified whether persistent; Pain; Mixed incontinence urge and stress; Tinnitus of right ear; Irritable bowel syndrome with diarrhea; Encounter for immunization; Breast cancer screening by mammogram; Screening for colon cancer; Encounter for health-related screening; Dietary counseling; Exercise counseling; Class 1 obesity with serious comorbidity and body mass index (BMI) of 30.0 to 30.9 in adult, unspecified obesity type; Impacted cerumen, unspecified laterality 06/19/2025 Travel 06/18/2025 Travel 06/16/[address] [facility] [address] [place] [address] Linda Leahy MD CHART PREP 06/13/[address] [facility] [address] [place] [address] Linda Leahy MD 06/12/[address] [facility] [address] [place] [address] Linda Leahy MD 06/12/[address] [facility] [address] [place] [address] Linda Leahy MD 05/22/[address] [facility] [address] [place] [address] Linda Leahy MD from Last 3 Months Immunizations Immunization Administration Dates Next Due Influenza Injectable Quadriv alant Preservative Free IIV4 MDCK 11/29/2017 Influenza injectable quadriv alent preservative free 10/31/2021,11/08/2018,07/14/2016 Influenza, seasonal, injecta ble, preservative free 07/28/2015 Pneumococcal Conjugate PCV 20 06/19/2025 Pneumococcal Polysaccharide PPSV23 02/08/2016 Tdap 06/19/2025,03/09/2015 Social History Tobacco Use Types Packs/Day Years Used Date Smoking Tobacco: Former Cigarettes Passive Smoke Exposure: Past Smokeless Tobacco: Never Tobacco Cessation:Counseling Given: Not Answered Depression Answer Date Recorded Patient Health Questionnaire-9 [...] Orientation Straight 03/10/2024 2: 39 PM EDT Last Filed Vital Signs Vital Sign Reading Time Taken Comments Blood Pressure 124/80 06/30/2025 8:54 AM EDT Pulse 76 06/30/2025 8:54 AM EDT Temperature 36.4 C (97.6 F) 06/30/2025 8:54 AM EDT Respiratory Rate 20 06/30/2025 8:54 AM EDT Oxygen Saturation 98% 06/30/2025 8:54 AM EDT Inhaled Oxygen Concentration - - Weight 81.1 kg (178 lb 12.8 oz) 06/30/2025 8:54 AM EDT Height 162.6 cm (5' 4 ) 06/30/2025 8:54 AM EDT Body Mass Index 30.69 06/30/2025 8:54 AM EDT Plan of Treatment Upcoming Encounters Date Type Department Care Team ([facility] st Contact Info) Description 10/12/2025 1:45 PM EST Office Visit [facility] [address] [place] [address] Linda Leahy MD [address] [place] [address] Health Maintenance Due Date Last Done Comments CT Colonography 1972 Colonoscopy 1972 FIT 1972 Sigmoidoscopy 1972 Hepatitis B Vaccines (1 of 3 - 19+ 3-dose series) 1991 Mammogram 2012 COVID-19 Vaccine ( season) 2025 11/02/2022, 10/26/2021, 04/02/2021 Influenza Vaccine (#1) 2025 , 11/08/2018, 11/29/2017, Additional history exists Depression Monitoring 12/20/2025 06/19/2025, 025 Alcohol/Substance Use Screening 06/19/2026 06/19/2025 Disability Screening 06/19/2026 06/19/2025 SDOH Screening 06/19/2026 06/19/2025 Zoster Vaccines (1 of 2) 06/19/2026 Pos tponed from 2022 (Patient Refused) Tobacco Screening 06/30/2026 06/30/2025 FOBT 07/11/2026 07/11/2025 Colorectal Cancer Screening 07/11/2028 FIT DNA/Cologuard 07/11/2028 07/11/2025 Lipid Panel 03/06/2029 03/06/2024 Cervical Cancer Screening 06/30/2030 HPV/Cotest 06/30/2030 06/30/2025 Pap Smear 06/30/2030 06/30/2025 DTaP/Tdap/Td Vaccines (3 - Td or Tdap) 06/19/2035 06/19/2025, 03/09/2015 RSV Patients and Patients Aged 60 years or older (1 - 1-dose 75+ series) 2047 Pneumococcal Vaccine: 50+ Years Completed 06/19/2025, 02/08/2016 HIV Screening Completed 06/30/2025 Hepatitis C Screening Completed 06/30/2025 HIB Vaccines Aged Out No longer eligi ble based on patient's age to complete this topic HPV Vaccines Aged Out No longer eligi ble based on patient's age to complete this topic Hepatitis A Vaccines Aged Out No long er eligible based on patient's age to complete this topic IPV Vaccines Aged Out No longer eligi ble based on patient's age to complete this topic Meningococcal B Vaccine Aged Out No l onger eligible based on patient's age to complete this topic Meningococcal Vaccine Aged Out No wendy parviz eligible based on patient's age to complete this topic RSV under 20 months Aged Out No longe r eligible based on patient's age to complete this topic Rotavirus Vaccines Aged Out No longer eligible based on patient's age to complete this topic Procedures Procedure Name Priority Date/Time Associated Diagnosis Comments LAB COLOGUARD COLON CANCER SCREEN Routine 07/11/2025 5:53 PM EDT Screening for colon cancer HEPATITIS B SURFACE ANTIGEN, EIA Routine 06/30/2025 9:55 AM EDT Encounter for health-related screening HEPATITIS B CORE AB TOTAL Routine 06/30/2025 9:55 AM EDT Encounter for health-related screening HEPATITIS B SURFACE ANTIBODY, QUALITATIVE Routine 06/30/2025 9:55 AM EDT Encounter for health-related screening HEPATITIS C AB W/REFL TO HCV RNA, QN, PCR Routine 06/30/2025 9:55 AM EDT Encounter for health-related screening HIV 1/2 ANTIGEN/ANTIBODY, FOURTH GENERATION W/RFL Routine 06/30/2025 9:55 AM EDT Encounter for health-related screening TSH W/REFLEX TO FT4 Routine 06/30/2025 9 :55 AM EDT Tinnitus of right ear RPR (MONITOR) W/REFL TITER Routine 06/30/2025 9:55 AM EDT Tinnitus of right ear IRON AND TOTAL IRON BINDING CAPACITY Routine 06/30/2025 9:55 AM EDT Tinnitus of right ear CBC WITH AUTO DIFFERENTIAL Routine 06/30/2025 9:55 AM EDT Tinnitus of right ear PAP SMEAR Routine 06/30/2025 9:29 AM EDT Cervical cancer screening HPV DNA, LOW/HIGH RISK Routine 06/30/2025 9:29 AM EDT Cervical cancer screening LIPID PANEL, STANDARD Routine 03/06/2024 1:14 PM EDT from Last 3 Months or Most Recently Relevant to Health Maintenance Results * Cologuard?? colon cancer screening (07/11/2025 5:53 PM EDT) Cologuard Result Negative Negative 07/17/20 11:46 PM EDT [facility] (CLIA #:[id number]) Comment: The Cologuard (TM) test was performed on this specimen. NEGATIVE TEST RESULT. A negative Cologuard result indicates a low likelihood that a colorectal cancer (CRC) or advanced adenoma (adenomatous polyps with more advanced pre-malignant features) is present. The chance that a person with a negative Cologuard test has a colorectal cancer is less than 1 in 1500 (negative predictive value >99.9%) or has an advanced adenoma is less than 5.3% (negative predictive value 94.7%). These data are based on a prospective cross-sectional study of 10,000 individuals at average risk for colorectal cancer who were screened with both Cologuard and colonoscopy. (Edilia Olea al, N Engl J Med 2014;370(14):1286- 1297) The normal value (reference range) for this assay is negative. COLOGUARD RE-SCREENING RECOMMENDATION: Periodic colorectal cancer screening is an important part of preventive healthcare for asymptomatic individuals at average risk for colorectal cancer. Following a negative Cologuard result, the [place] [employer] and U.S. Multi-Society Task Force screening guidelines recommend a Cologuard re-screening interval of 3 years. References: [place] [employer] Guideline for Colorectal Cancer Screening: https://www.cancer.org/cancer/coyhq-bglpge-krbdss/fmuqthamd-owsdmrpnz-yrtghni/ac s-rec ommendations.html.; Magdi DK, Virgie PEARSON, Radha TaylorK, Colorectal Cancer Screening: Recommendations for Physicians and Patients from the U.S. Multi-Society Task Force on Colorectal Cancer Screening , Am J Gastroenterology 2017; 112:9280-5287. TEST DESCRIPTION: Composite algorithmic analysis of stool DNA-biomarkers with hemoglobin immunoassay. Quantitative values of individual biomarkers are not reportable and are not associated with individual biomarker result reference ranges. Cologuard is intended for colorectal cancer screening of adults of either sex, 45 years or older, who are at average-risk for colorectal cancer (CRC). Cologuard has been approved for use by the U.S. FDA. The performance of Cologuard was established in a cross sectional study of average-risk adults aged 50-84. Cologuard performance in patients ages 45 to 49 years was estimated by sub-group analysis of near-age groups. Colonoscopies performed for a positive result may find as the most clinically significant lesion: colorectal cancer [4.0%], advanced adenoma (including sessile serrated polyps greater than or equal to 1cm diameter) [20%] or non- advanced adenoma [31%]; or no colorectal neoplasia [45%]. These estimates are derived from a prospective cross-sectional screening study of 10,000 individuals at average risk for colorectal cancer who were screened with both Cologuard and colonoscopy. (Edilia Carmen et al, N Engl J Med 2014;370(14):7433-6697.) Cologuard may produce a false negative or false positive result (no colorectal cancer or precancerous polyp present at colonoscopy follow up). A negative Cologuard test result does not guarantee the absence of CRC or advanced adenoma (pre-cancer). The current Cologuard screening interval is every 3 years. ([place] [employer] and U.S. Multi-Society Task Force). Cologuard performance data in a 10,000 patient pivotal study using colonoscopy as the reference method can be accessed at the following location: www.[employer].Ch[employer]ur Prive/results. Additional description of the Cologuard test process, warnings and precautions can be found at www.[email or web address]ogTiltrd.com. Stool specimen (specimen) 07/11/2025 5:53 PM EDT 07/15/2025 1:58 PM EDT us Linda Leahy MD LAB MOLECULAR DIAGNOSTICS ORD ERABLES Final Result [facility] (CLIA #:[id number]) [address] [place] [address], * TSH W/Reflex to FT4 (06/30/2025 9:55 AM EDT) TSH reflex Free T4 2.99 0.32 - 4.0 uIU/mL [facility] Blood Venous blood specimen / Unknown 06/30/2025 9:55 AM EDT 06/30/2025 1:55 PM EDT us Linda Leahy MD LAB BLOOD ORDERABLES Final Re sult [facility] [address] [place] [address] [phone] * CBC auto differential (06/30/2025 9:55 AM EDT) White Blood Count 5.6 4.8 - 10.8 X10*3/uL [facility] Red Blood Count 4.96 4.20 - 5.50 X10*6/uL [facility] Hemoglobin 13.7 12.0 - 16.0 g/dl [facility] Hematocrit 43.2 37.0 - 47.0 % [facility] Mean Corpuscular Volume 87.1 80.0 - 98.0 fL [facility] Mean Corpuscular Hemoglobin 27.6 27.0 - 33.0 pg [facility] Mean Corpuscular HGB Conc 31.7 31.0 - 35.0 g/dl [facility] Red Cell Distribution Width 13.1 11.0 - 16.0 % [facility] Platelet Count 246 160 - 400 X10*3/uL [facility] Mean Platelet Volume 11.1 9.4 - 12.3 fL [facility] Neutrophils Percent Auto 57.5 45 - 73 % [facility] Imm Gran Pct Auto 0.2 0.0 - 0.4 % [facility] Lymphocytes Percent Auto 30.8 20 - 40 % [facility] Monocytes Percent Auto 7.0 2 - 11 % [facility] Eosinophils Percent Auto 3.8 0 - 4 % [facility] Basophils Percent Auto 0.7 0 - 2 % [facility] NRBC Pct Auto 0.0 0.0 - 0.2 /100WBC [facility] Neutrophils Absolute Auto 3.2 2.0 - 8.3 x10*3/uL [facility] Imm Gran Abs Auto 0.01 0.00 - 0.03 X10*3/uL [facility] Lymphocytes Absolute Auto 1.7 1.2 - 4.9 X10*3/uL [facility] Monocytes Absolute Auto 0.4 0.1 - 1.2 X10*3/uL [facility] Eosinophils Absolute Auto 0.2 0.0 - 0.4 X10*3/uL [facility] Basophils Absolute Auto 0.0 0.0 - 0.2 X10*3/uL [facility] NRBC Abs Auto 0.000 0.0 - 0.012 X10*3/uL [facility] Blood Venous blood specimen / Unknown 06/30/2025 9:55 AM EDT 06/30/2025 1:55 PM EDT Linda Leahy MD LAB BLOOD ORDERABLES Final Re sult Performing Organization Address [facility] Co de Phone Number [facility] [address] [place] [phone] * Hepatitis C Antibody with Reflex to HCV, RNA, Quantitative, Real-Time PCR (06/30/2025 9:55 AM EDT) [facility] Hepatitis C Antibody Nonreactive Nonreactive [facility] Comment:Antibodies to HCV no t detected; does not exclude early acuteHCV infection. Blood Venous blood specimen / Unknown 06/30/2025 9:55 AM EDT 06/30/2025 1:55 PM EDT us Linda Leahy MD LAB BLOOD ORDERABLES Final Re sult Performing Organization Address [facility] Co de Phone Number [facility] [address] [place] [phone] * Iron And Total Iron Binding Capacity (06/30/2025 9:55 AM EDT) Pathologist [facility] Iron 83 30 - 160 mcg/dL [facility] Total Iron Binding Capacity 309 228 - 428 mcg/dL [facility] Percent Iron Saturation 27 15 - 50 % [facility] Unsaturated Iron Binding 226 ug/dL [facility] Blood Venous blood specimen / Unknown 06/30/2025 9:55 AM EDT 06/30/2025 1:55 PM EDT Linda Leahy MD LAB BLOOD ORDERABLES Final Re sult Performing Organization Address [facility] de Phone Number [facility] [address] [place] [phone] * Hepatitis B surface antigen, EIA (06/30/2025 9:55 AM EDT) Hepatitis B Surface Ag Negative Negative [facility] Blood Venous blood specimen / Unknown 06/30/2025 9:55 AM EDT 06/30/2025 1:55 PM EDT Linda Leahy MD LAB BLOOD ORDERABLES Final Re sult Performing Organization Address [facility] Phone Number [facility] [address] [place] [phone] * Hepatitis B Core Antibody, Total (06/30/2025 9:55 AM EDT) Hepatitis B Core Antibody Nonreactive Nonreactive [facility] Blood Venous blood specimen / Unknown 06/30/2025 9:55 AM EDT 06/30/2025 1:55 PM EDT Linda Leahy MD LAB BLOOD ORDERABLES Final Re sult Performing Organization Address [facility] de Phone Number [facility] [address] [place] [phone] * RPR (Monitor) with Reflex to??Titer (06/30/2025 9:55 AM EDT) RPR (Monitor) w/Refl Titer NON-REACTI VE NON-REACT BRENNON [facility] Comment:THIS TEST WAS PERFOR MED AT:[facility] [place] [phone] MOREIRA MD Rapid Plasma Reagin Ab Titer TNP [facility] Blood Venous blood specimen / Unknown 06/30/2025 9:55 AM EDT 06/30/2025 1:55 PM EDT us Linda Leahy MD LAB BLOOD ORDERABLES Final Re sult [facility] [address] [place] [address] [phone] * HIV-1/2 Antigen and Antibodies, Fourth Generation, with Reflexes (06/30/2025 9:55 AM EDT) HIV AB/AG Nonreactive Nonreactive [facility] Comment:HIV-1 p24 Ag and/or HIV-1/HIV-2 Ab not detected.A test result that is nonreactive does not exclude thepossibility of exposure to or infection with HIV-1 and/orHIV-2. Nonreactive results in this assay for individualswith prior exposure to HIV-1 and/or HIV-2 may be due toantigen and antibody levels that are below the limit ofdetection of this assay.The [employer] HIV Ag/Ab Combo assay result andsupplemental assay results should be interpreted inconjunction with the patient's clinical presentation,history and other laboratory results. If the results areinconsistent with clinical evidence, additional testing issuggested to confirm the result. Blood Venous blood specimen / Unknown 06/30/2025 9:55 AM EDT 06/30/2025 1:55 PM EDT us Linda Leahy MD LAB BLOOD ORDERABLES Final Re sult [facility] [address] [place] [address] [phone] * Hepatitis B Surface Antibody, Qualitative (06/30/2025 9:55 AM EDT) ~Hepatitis B Surface Antibody NONREACTIVE Nonreactive [facility] Comment:Nonreactive: < 8.00 mIU/mL Blood Venous blood specimen / Unknown 06/30/2025 9:55 AM EDT 06/30/2025 1:55 PM EDT Linda Leahy MD LAB BLOOD ORDERABLES Final Re sult Performing Organization Address [facility] Co de Phone Number [facility] [address] [place] [phone] * HPV High Risk with Reflex to Subtypes (06/30/2025 9:29 AM EDT) Pathologist [facility] HPV High Risk Negative Negative [facility] HPV Genotype 16 Negative Negative [facility] HPV Genotype 18 Negative Negative [facility] Comment:HPV testing performe d at [facility] (CLIA#[id number]), [address] [place] [address].Testing for HPV was performed using the Anup MEGGAN 6800system. The presence of HPV in the female genital tract isassociated with a number of diseases, including cervicalcarcinoma. The HPV DNA high risk pool tests for HPV 31, 33,35, 39, 45, 51, 52, 56, 58, 59, 66 and 68. The testing forHPV 16 and 18 genotypes has also been performed. A positiveresult indicates detection of nucleic acid sequences fromone or more subtypes, whereas a negative result indicatessuch sequences were not detected. Pap Vial 06/30/2025 9:29 AM EDT 07/01/2025 8:45 AM EDT Linda Leahy MD LAB BLOOD ORDERABLES Final Re sult Performing Organization Address [facility] Co de Phone Number [facility] [address] [place] [phone] * Pap Smear (06/30/2025 9:29 AM EDT) Swab Cervical swab / Unknown 06/30/2025 9:29 AM EDT 07/01/2025 8:45 AM EDT [facility] - 07/06/2025 11:06 AM EDT ----- ------- Name: Kari Nelson Age/Sex: 55/F : 1970 Unit#: [id number] Attend Dr: Linda Leahy MD Re06/30/25 Status: [facility] Disch: ----- ------- SPEC : [id number] RECD: 07/01/25 STATUS: TERESA CHEN NUM: [id number] REHAN: 06/30/[address] [facility] [address]: Linda Leahy MD ENTERED: 07/01/25 SP TYPE: Pap Smr [facility] DR: ORDERED: Pap Smear Interpretation Satisfactory for evaluation. Negative for intraepithelial lesion or malignancy. HPV High Risk: Negative HPV Genotyping 16: Negative HPV Genotyping 18: Negative Clinical Information LMP: Postmenopausal Previous PAP test: 1991 ASCUS, sp cryotherapy Material Received ThinPrep-Cervical PAP Disclaimer As of September 03, 2024, the technical services to include automated prescreening performed by the ThinPrep Imaging System, PAP screening and HPV testing will be performed at [facility] (CLIA #[id number]), [address] [place] [address]. Testing for HPV was performed using the Anup MEGGAN 6800 system. The presence of HPV in the female genital tract is associated with a number of diseases, including cervical carcinoma. The HPV DNA high risk pool tests for HPV 31, 33, 35, 39, 45, 51, 52, 56, 58, 59, 66 and 68. The testing for HPV 16 and 18 genotypes has also been performed. A positive result indicates detection of nucleic acid sequences from one or more subtypes, whereas a negative result indicates such sequences were not detected. All professional services are performed by [facility] ([address] [place] [address], [place] [address]; ; CLIA #[id number]). The PAP Test is a screening procedure with the inherent possibility of both false negative and false positive results. Results should be interpreted in the context of historic and current clinical findings. Reliability of the PAP Test is enhanced by performing the test on a regular repetitive basis. ----- ------- Signed (signature on file) ROWENA Dubon (ASCP) 07/06/25 1106 ----- ------- END OF REPORT us Linda Leahy MD LAB CYTOLOGY ORDERABLES Final Result [facility] [address] [place] [address] [place] [phone] * (ABNORMAL) Lipid Panel, Standard (03/06/2024 1:14 PM EDT) Triglycerides 82 <150 mg/dL [facility] Comment:Desirable Triglyceri de: less than 150 mg/dLBorderline High Triglyceride 150-199 mg/dLHigh Triglyceride: 200-499 mg/dLVery High Triglyceride: greater than or equal to 5OO mg/dL Cholesterol 196 <200 mg/dL [facility] Comment:Desirable Cholestero l: less than 200 mg/dLBorderline High Cholesterol: 200-239 mg/dLHigh Cholesterol: greater than 239 mg/dL LDL Cholesterol Calculated 122(H) <100 mg/dL [facility] Comment:Desirable LDL: less than 100 mg/dLNear Optimal/Above Optimal LDL: 110- 129 mg/dLBorderline High LDL: 130-159 mg/dLHigh LDL: 160-189 mg/dLVery High LDL: greater than or equal to 190 mg/dL HDL Cholesterol 58 >40 mg/dL [facility] Comment:Desirable HDL: great er than 40 mg/dL Note: This HDL assay may give artificially low results in patients with liver disease. 03/06/2024 1:14 PM EDT 03/06/2024 2:18 PM EDT us Linda Leahy MD LAB BLOOD ORDERABLES Final Re sult [facility] [address] [place] [address] [phone] from Last 3 Months or Most Recently Relevant to Health Maintenance Insurance [facility] STANDARD [facility] ONE CARE < 65 Advance Directives Documents on File Type Date Recorded Patient Multiple Needle Stitcher Expl anatunc health [facility] Proxy 07/23/2023 [place] [employer] are Proxy Care Teams Counseling Case Manager Relationship Specialty Start Date End Date Linda Leahy MD [address] [place] [address] PCP - General Family Medicine 07/19/23
--- OUTSIDE RECORDS SUMMARY | 2025-08-22 08:21 | XMS_ITS | Clinical Summary ---
Author Organization [facility] Address [address] [facility] [address] [place] [phone] Phone Care Team Providers Care Head Char Filter Tank Tender Name Role Phone Marko Manriquez Tatiana DO Unavailable Matthias Barber MD Primary Care Prov ider [...] days. 1 mL 11 4 Active rizatriptan (MAXALT-PURCHASING CLERK) 10 MG disintegrating tabletIndications: Intractable migraine with [...] SMOKELESS TOBACCO SCREENING 1985 HIV ONE-TIME SCREENING (18-65 YEARS) 1990 MAMMOGRAM 2012 PNEUMOCOCCAL VACCINES (50+ years) (2 of 2 - PCV) 02/07/2017 02/08/2016 COLOGUARD 2017 FIT TEST 2017 SIGMOIDOSCOPY 2017 VIRTUAL COLONOSCOPY 2017 FOBT 12/03/2018 12/03/2017 ZOSTER VACCINES (1 of 2) 2022 PAP SMEAR 05/19/2022 05/19/2019, 06/17/1996 DEPRESSION SCREENING 05/01/2023 05/01/2022 Adult Td,Tdap Booster 03/09/2025 03/09/2015 INFLUENZA VACCINE (#1) 2025 8, 11/29/2017, 07/14/2016, Additional history exists COVID-19 VACCINE ( season) 2025 10/26/2021, 04/02/2021 COLONOSCOPY 02/01/2028 01/31/2018 COLORECTAL CANCER SCREENING 02/01/2028 LIPID PANEL 03/06/2029 03/06/2024, 12/01/2022 RSV VACCINE (1 - 1-dose 75+ series) 2047 HEPATITIS C SCREENING Completed 05/20/2021 HEPATITIS A [...] SEE NARRATIVE - 05/23/2019 3:05 PM EDT [address] [address] Breaster: Brittani Akins MD LITIGATION SPECIALIST Cytology Report FINAL DIAGNOSIS A. PAP SMEAR [...] 52, 56, 58, 59, 66, 68) by 1-800-DOCTORSlariITM Software HR-HPV analysis. Clinical correlation is advised. This HPV test was performed at [facility], [address] [place] [address]. This test has been FDA approved for SurePath cervical cytology specimens. The accuracy and precision of this test for all other specimen sources has been verified in the Cytopathology Laboratory of the [facility] and has not been cleared or approved by the U.S. Food and Drug Administration. Clinical correlation is advised. CLINICAL HISTORY Date of Last Menstrual Period: Not Provided Menstrual History: Post Menopausal Other Clinical Conditions: Screening Pap SPECIMEN SOURCE A: PAP SMEAR (SUREPATH) CE Patient Name: KARI TOLEDO : 1970 (Age: 49) Sex: F Institution: [facility] Location: [facility] Date of Collection: 05/19/2019 Date of [...] 45 Admit Type: Outpatient Gender: Female Room: [place] [address] Referring MD: Matthias Gunter MD Exam Type: [...] monitored continuously. The Olympus adult variable colonoscope [id number] #5 was introduced through the anus and [...] 10:38 AM Procedure Code(s): --- Professional --- 95254, Colonoscopy, flexible; with biopsy, single or multiple --- Technical --- 98050, Colonoscopy, flexible; with biopsy, single or multiple Diagnosis Code(s): --- Professional --- R19.7, Diarrhea, unspecified --- Technical --- R19.7, Diarrhea, unspecified CPT copyright 2016 [employer]. All rights reserved. The codes documented in this report are preliminary and upon bond trader reviewmay be revised to meet current compliance requirements. [address] [place] [address] Matthias Gunter MD GI PROCEDURE ORDER RIK Final Result * Fecal occult blood, multiple (12/03/2017 2:15 PM EST) FECAL OCC BLD 1 DATE [facility] Occult bld, stool, #1 Negative Negative [facility] Stool (Stool) 12/03/2017 2:1 5 PM EST 12/03/2017 2:18 PM EST Luzma Canseco PA-C BODY FLUIDS AND STOOLS ORDERABL ES Final Result [address] [address] from Last 3 Months or Most Recently Relevant to Health Maintenance Insurance MEDICARE PART A & B CARE MEDICARE REPLACEMENT ALYSSA MARY [facility] MEDICARE PART A & B CARE MEDICARE REPLACEMENT ALYSSA MARY [id number] MEDICARE PART A & B [facility] ONE CARE MEDICARE REPLACEMENT ALYSSA MARY [id number] MEDICARE PART A & B [facility] ONE CARE MEDICARE REPLACEMENT MEDICARE PART A & B [facility] CARE MEDICARE REPLACEMENT MEDICARE PART A & B [facility] ONE CARE MEDICARE REPLACEMENT Advance Directives For more information, please contact: [phone] (9AM - 5PM [facility], Sunday-Sunday) Documents on File Type Date Recorded Patient Wood Machinist Expl anation Healthcare Proxy 05/01/2022 3:05 PM Edwin Toledo Health Care Proxy - [email or web address].pdf Healthcare Agents on File Name Relationship Healthcare Agent Relationship Communication Edwin Lowery Jr. Friend Alternate H ealthcare Agent (Proxy form on file) Bela Toledo Daughter .Primary Health Care Agent (Proxy form on file) Care Teams Head Char Filter Tank Tender Relationship Specialty Start Date End Date Matthias Barber MD [address] [place] [phone] [email or web address] PCP - General Family Medicine 01/11/20 Marko Manriquez DO [address] [place] [address] Orthopedics [facility] Sports Medicine, [place] [address] [email or web address] Historical LMR Provider 08/29/17 Additional Source Comments The information contained in this document represents components of the legal health record. It is not the complete legal health record.[facility]
--- OUTSIDE RECORDS SUMMARY | 2025-08-22 08:22 | XMS_ITS | Encounter Summary ---
Author Organization [employer] Address [address] [place] [address] 7 [place] [address] Care Team Providers Care Corporate Development Intern Name Role Phone Linda Leahy MD Primary Care Provider [phone] Reason for Visit * Reason Onset Date Comments New Patient Appt 06/14/2023 Encounter Details Date Type Department Care Team ([facility] st Contact Info) Description 06/14/2023 Telephone [facility] [address] [place] [address] Juliocesar Hernandez MD [address] [place] [address] New Patient Appt Social History Tobacco Use Types Packs/Day Years Used Date Smoking Tobacco: Former Cigarettes Passive Smoke Exposure: Past Smokeless Tobacco: Never PHQ-2 Answer Date Recorded Patient Health Questionnaire-2 Score 6 05/08/2023 Comments Unknown Sex and Gender Information Value Date Recorded Sex Assigned at Female 05/08/2023 9:26 AM EDT Legal Sex Female 9:22 AM EDT Gender Identity Female 05/08/2023 9:26 AM EDT Sexual Orientation Straight 03/10/2024 2: 39 PM EDT documented as of this encounter Miscellaneous Notes * Telephone Encounter - Laury Vance - 06/14/2023 11:38 AM EDT PAR Laury Hart called pt to Offer [facility] appt. Pt demographics and insurance information were verified. Pt reports the following medical conditions: Bipolar, RHONDA, Depression, Chronic Migraines, BothKnee injuries, and other Chronic Conditions. Pt is currently taking medication: Ajovy 225 MG/1.5ML auto-injector, cyclobenzaprine (Flexeril) 10 MG tablet, gabapentin (Neurontin) 300 MG capsule, ketorolac (Toradol) 10 MG tablet, naproxen (Naprosyn) 500 MG tablet, orphenadrine (Norflex) 100 MG 12 hr tablet, SUMAtriptan (Imitrex) 25 MG tablet, and Xopenex HFA 45 MCG/ACT inhaler. Pt given [facility] appt with Dr. Linda Leahy on 07/19/2023 @ 1:00 pm. Pt will be sent appt reminder card and medical release form and agrees to complete and to return to medical records prior to [facility] appt. * Telephone Encounter - Laury Vance - 06/14/2023 9:45 AM EDT New Patients Par Laury Hart called to schedule New patient appt, pt did not answer left voicemail to give a call at [phone]. documented in this encounter Plan of Treatment Upcoming Encounters Date Type Department Care Team (Late st Contact Info) Description 10/12/2025 1:45 PM EST Office Visit [facility] [address] [place] [address] Linda Leahy MD [address] [place] [address] documented as of this encounter Visit Diagnoses Not on filedocumented in this encounter Additional Health Concerns Assessment Noted Time PHQ-9 Depression Total Score: 21 023 11:16 AM EDT documented as of this encounter Care Teams Corporate Development Intern Relationship Specialty Start Date End Date Linda Leahy MD [address] [place] [address] PCP - General Family Medicine 07/19/23 documented as of this encounter
--- OUTSIDE RECORDS SUMMARY | 2025-08-22 08:22 | XMS_ITS | Encounter Summary ---
Author Organization [employer] Address [address] [place] [address] 7 [place] [address] Care Team Providers Care Radiologic Technology Instructor Name Role Phone Linda Laehy MD Primary Care Provider [phone] Encounter Details Date Type Department Care Team ([facility] Contact Info) Description 07/01/2025 Results Follow-Up [facility] [address] [place] [address] Linda Leahy MD [address] [place] [address] CBC auto differential, Iron And Total Iron Binding Capacity, TSH W/Reflex to FT4, Additional followed-up results: 7 Social History Tobacco Use Types Packs/Day Years [...] 1:45 PM EST Office Visit [facility] [address] [place] [address] Linda Leahy MD [address] [place] [address] documented as of this encounter Visit Diagnoses Not on filedocumented in this encounter Additional Health Concerns Assessment Noted Time PHQ-9 Depression Total Score: 20 025 9:20 AM EDT documented as of this encounter Care Teams Radiologic Technology Instructor Relationship Specialty Start Date End Date Linda Leahy MD [address] [place] [address] PCP - General Family Medicine 07/19/23 documented as of this encounter
--- OUTSIDE RECORDS SUMMARY | 2025-08-22 08:22 | XMS_ITS | Encounter Summary ---
Author Organization [employer] Address [address] [place] [address] 7 [place] [address] Care Team Providers Care Diesel Technician Name Role Phone Linda Leahy MD Primary Care Provider [phone] Reason for Visit * Reason Comments Med Refill Encounter Details Date Type Department Care Team ([facility] Contact Info) Description 05/06/2024 Refill [facility] PEDS [address] [place] [address] Linda Leahy MD [address] [place] [address] Social History Tobacco Use Types Packs/Day Years Used Date Smoking Tobacco: Former Cigarettes Passive Smoke Exposure: Past Smokeless Tobacco: Never Depression Answer Date Recorded Patient Health Questionnaire-9 Score 4 03/10/2024 Patient Health Questionnaire-9 Score 4 03/10/2024 Last PHQ-9: Questionnaire Data Not on file 0 03/10/2024 Housing Stability Answer Date Recorded What is your housing situation today? I have zi swanson 08/29/[address] you li ve. Do you have problems with any of the following? None of the above 08/29/2023 Food Insecurity Answer Date Recorded Within the past 12 months, y ou worried that your food would run out before you got money to buy more: Never True 08/29/2023 Within the past 12 months,th e food you bought just didn't last and you didn't have enough money to get more: Never True Transportation Answer Date Recorded In the past 12 months, has l ack of transportation kept you from medical appts, meetings, work or from getting things needed for daily living? No 08/29/2023 Utilities Answer Date Recorded In the past 12 months, has t he electric, gas, oil or water company threatened to shut off services in your home? No 08/29/2023 Depression Answer Date Recorded Patient Health Questionnaire-2 Score 2 03/10/2024 Comments Unknown Sex and Gender Information Value [...] Description 10/12/2025 1:45 PM EST Office Visit [facility]S [address] [place] [address] Linda Leahy MD [address] [place] [address] documented as of this encounter Visit Diagnoses Not on filedocumented in this encounter Additional Health Concerns Assessment Noted Time PHQ-9 Depression Total Score: 4 03/10/20 24 1:53 PM EDT documented as of this encounter Care Teams Diesel Technician Relationship Specialty Start Date End Date Linda Leahy MD [address] [place] [address] PCP - General Family Medicine 07/19/23 documented as of this encounter
--- OUTSIDE RECORDS SUMMARY | 2025-08-22 08:22 | XMS_ITS | Encounter Summary ---
Author Organization [facility] Address [address] [facility] [address] [place] [address] Phone Care Team Providers Care Service Station Console Operator Name Role Phone Matthias Barber MD Primary Care Prov ider Pcp, Unknown Unavailable Unavailable Marko Manriquez DO Unavailable Matthias Barber MD Unavailable + Zia Brown MD Unavailable [phone] Pcp, Unknown Primary Care Provider Unavailabl e Matthias Barber MD Primary Care Prov ider Matthias Barber MD Unavailable + Farhan JacksonSW Unavailable [phone] Encounter Details Date Type Department Care Team (Late st Contact Info) Description 07/09/2016 Ophth Exam [facility] [address] [place] [address] Junior Tejada MD [address] [place] [address] Social History Tobacco Use Types Packs/Day Years Used Date Smoking Tobacco: Every Day Alcohol Use Standard Drinks/Week Comments No 0 (1 standard drink = 0.6 oz pur e alcohol) Comments Unknown Sex and Gender Information Value Date Recorded Sex Assigned at Female 03/27/2019 10:26 PM EDT Legal Sex Female 7:13 PM EST Gender Identity Female 03/27/2019 10:26 PM EDT Sexual Orientation Straight 03/27/2019 10 :26 PM EDT documented as of this encounter Plan of Treatment Not on file documented as of this encounter Visit Diagnoses Not on filedocumented in this encounter Care Teams Service Station Console Operator Relationship Specialty Start Date End Date Matthias Barber MD [email or web address] PCP - General 01/14/16 08/31/19 Pcp, Unknown PCP - General 09/01/19 01/10/20 Matthias Barber MD [address] [place] [address] [email or web address] PCP - General Family Medicine 01/11/20 Pcp, Unknown 01/14/16 01/29/20 Marko Manriquez DO [address] [place] [address] Orthopedics & Sports Medicine, [place] [address] [email or web address] Historical LMR Provider 08/29/17 Matthias Barber MD [address] [place] [address] [email or web address] Historical LMR Provider 08/29/17 11/19/21 Zia Brown MD [address] [place] [address] [email or web address] Historical LMR Provider 08/29/17 11/19/21 Matthias Barber MD [address] [place] [phone] [email or web address] Insurance Assigned Provider 12/18/21 05/19/23 Farhan Jackson [address] [address] [email or web address] Timber Appraiser 05/01/22 07/31/22 documented as of this encounter Additional Source Comments The information contained in this document represents components of the legal health record. It is not the complete legal health record.[facility]
--- OUTSIDE RECORDS SUMMARY | 2025-08-22 08:22 | XMS_ITS | Encounter Summary ---
Author Organization [employer] Address [address] [place] [address] 7 [place] [address] Care Team Providers Care Skiving Machine Operator Name Role Phone Linda Leahy MD Primary Care Provider [phone] Reason for Visit * Reason Comments Med Refill Encounter Details Date Type Department Care Team ([facility] Contact Info) Description 07/22/2025 Refill [facility] MED & PEDS [address] [place] [address] Linda Leahy MD [address] [place] [address] Social History Tobacco Use Types Packs/Day Years [...] Description 10/12/2025 1:45 PM EST Office Visit [facility] MED & PEDS [address] [place] [address] Linda Leahy MD [address] [place] [address] documented as of this encounter Visit Diagnoses Not on filedocumented in this encounter Additional Health Concerns Assessment Noted Time PHQ-9 Depression Total Score: 20 025 9:20 AM EDT documented as of this encounter Care Teams Skiving Machine Operator Relationship Specialty Start Date End Date Linda Leahy MD [address] [place] [address] PCP - General Family Medicine 07/19/23 documented as of this encounter
--- OUTSIDE RECORDS SUMMARY | 2025-08-22 08:22 | XMS_ITS | Encounter Summary ---
Author Organization [employer] Address [address] [place] [address] 7 [place] [address] Care Team Providers Care Buzzle Buffer Name Role Phone Linda Leahy MD Primary Care Provider [phone] Encounter Details Date Type Department Care Team ([facility] Contact Info) Description 07/07/2025 Results Follow-Up [facility] CHC MED & PEDS [address] [place] [address] Linda Leahy MD [address] [place] [address] Pap Smear, HPV High Risk with Reflex to Subtypes Social History Tobacco Use Types Packs/Day Years [...] Description 10/12/2025 1:45 PM EST Office Visit [facility] MED & PEDS [address] [place] [address] Linda Leahy MD [address] [place] [address] documented as of this encounter Visit Diagnoses Not on filedocumented in this encounter Additional Health Concerns Assessment Noted Time PHQ-9 Depression Total Score: 20 025 9:20 AM EDT documented as of this encounter Care Teams Buzzle Buffer Relationship Specialty Start Date End Date Linda Leahy MD [address] [place] [address] PCP - General Family Medicine 07/19/23 documented as of this encounter
--- OUTSIDE RECORDS SUMMARY | 2025-08-22 08:22 | XMS_ITS | Encounter Summary ---
Author Organization [employer] Address [address] [place] [address] 7 [place] [address] Care Team Providers Care In File Operator Name Role Phone Linda Leahy MD Primary Care Provider [phone] Reason for Visit * Reason Comments Med Refill Encounter Details Date Type Department Care Team ([facility] Contact Info) Description 08/03/2025 Refill [facility] CHC MED & PEDS [address] [place] [address] Linda Leahy MD [address] [place] [address] Reactive airway disease without complication, unspecified asthma severity, unspecified whether persistent Social History Tobacco Use Types Packs/Day Years [...] Description 10/12/2025 1:45 PM EST Office Visit [facility] CHC MED & PEDS [address] [place] [address] Linda Leahy MD [address] [place] [address] documented as of this encounter Visit Diagnoses Diagnosis Reactive airway disease without complication, unspecified asthma severity, unspecified whether persistent documented in this encounter Additional Health Concerns Assessment Noted Time PHQ-9 Depression Total Score: 20 025 9:20 AM EDT documented as of this encounter Care Teams In File Operator Relationship Specialty Start Date End Date Linda Leahy MD [address] [place] [address] PCP - General Family Medicine 07/19/23 documented as of this encounter
--- OUTSIDE RECORDS SUMMARY | 2025-08-22 08:22 | XMS_ITS | Encounter Summary ---
Author Organization [facility] Address [address] [facility] [address] [place] [address] Phone Care Team Providers Care Cash Shortage Investigator Name Role Phone Matthias Barber MD Primary Care Prov ider Pcp, Unknown Unavailable Unavailable Marko Manriquez DO Unavailable Matthias Barber MD Unavailable + Zia Brown MD Unavailable [phone] Pcp, Unknown Primary Care Provider Unavailabl e Matthias Barber MD Primary Care Prov ider Matthias Barber MD Unavailable + Farhan JacksonSW Unavailable [phone] Encounter Details Date Type Department Care Team (Latest Contact Info) Description 12/03/[address] [facility] Laboratory [address] [phone] Luzma Canseco PA-C [address], [address] [place] [address] Diarrhea, unspecified type (Primary Dx) Social History Tobacco Use Types Packs/Day Years [...] on file documented as of this encounter Results * Fecal occult blood, multiple (12/03/2017 2:15 PM EST) FECAL OCC BLD 1 DATE [facility] Occult bld, stool, #1 Negative Negative [facility] Stool (Stool) 12/03/2017 2:1 5 PM EST 12/03/2017 2:18 PM EST us Luzma Canseco PA-C BODY FLUIDS AND STOOLS ORDERABL ES Final Result Performing Organization Address [facility] de Phone Number [address] [address] * C. difficile PCR (12/03/2017 2:15 PM EST) C.DIFFICILE PCR Negative Negative [facility] C.DIFFICILE STRAIN PRESUMPTIVE NEGATIVE PRESUMPTIVE NEGATIVE [facility] Comment:Detection of 027/NAP 1/BI strains of C.difficile is presumptive and is solely for epidemiological purposes and is not intended to guide or monitor treatment of infections. Stool (Stool) 12/03/2017 2:1 5 PM EST 12/03/2017 2:19 PM EST Luzma Canseco PA-C MICROBIOLOGY - GENERAL ORDERABL ES Final Result Performing Organization Address [facility] Co de Phone Number [address] [address] * Calprotectin, stool (12/03/2017 2:15 PM EST) CALPROTECTIN 16.0 <=50.0 (Normal) mcg/g [facility] DPT OF LAB MED AND PAT+ Stool (Stool) 12/03/2017 2:1 5 PM EST 12/03/2017 2:18 PM EST us Luzma Canseco PA-C BODY FLUIDS AND STOOLS ORDERABL ES Final Result [facility] DPT OF LAB MED AND PAT+ [address] [place] [address] documented in this encounter Visit Diagnoses Diagnosis Diarrhea, unspecified type- Primary documented in this encounter Care Teams Cash Shortage Investigator Relationship Specialty Start Date End Date Matthias Barber MD [email or web address] PCP - General 01/14/16 08/31/19 Pcp, Unknown PCP - General 09/01/19 01/10/20 Matthias Barber MD [address] [place] [address] [email or web address] PCP - General Family Medicine 01/11/20 Pcp, Unknown 01/14/16 01/29/20 Marko Manriquez DO [address] [place] [address] [facility] [place], [place] [id number] Historical LMR Provider 08/29/17 Matthias Barber MD [address] [place] [address] [email or web address] Historical LMR Provider 08/29/17 11/19/21 Zia Brown MD [address] [place] [address] [email or web address] Historical LMR Provider 08/29/17 11/19/21 Matthias Barber MD [address] [place] [address] [email or web address] Insurance Assigned Provider 12/18/21 05/19/23 Farhan Jackson, SHAISTA [address] [place] [address] [email or web address] Dog Day Care Attendant 05/01/22 07/31/22 documented as of this encounter Additional Source Comments The information contained in this document represents components of the legal health record. It is not the complete legal health record.[facility]
--- OUTSIDE RECORDS SUMMARY | 2025-08-22 08:22 | XMS_ITS | Encounter Summary ---
Author Organization [employer] Address [address] [place] [address] 7 [place] [address] Care Team Providers Care Radio Performer Name Role Phone Linda Leahy MD Primary Care Provider [phone] Reason for Visit * Reason Comments Med Refill Encounter Details Date Type Department Care Team ([facility] Contact Info) Description 08/17/2025 Refill [facility] CHC MED & PEDS [address] [place] [address] Linda Leahy MD [address] [place] [address] Social History Tobacco Use Types Packs/Day Years [...] 1:45 PM EST Office Visit [facility] MED & PEDS [address] [place] [address] Linda Leahy MD [address] [place] [address] documented as of this encounter Visit Diagnoses Not on filedocumented in this encounter Additional Health Concerns Assessment Noted Time PHQ-9 Depression Total Score: 20 025 9:20 AM EDT documented as of this encounter Care Teams Radio Performer Relationship Specialty Start Date End Date Linda Leahy MD [address] [place] [address] PCP - General Family Medicine 07/19/23 documented as of this encounter
--- OUTSIDE RECORDS SUMMARY | 2025-08-22 08:22 | XMS_ITS | Encounter Summary ---
Author Organization [facility] Address [address] [facility] [address] [place] [address] Phone Care Team Providers Care Manager Intensive Care Name Role Phone Matthias Barber MD Primary Care Prov ider Pcp, Unknown Unavailable Unavailable Marko Manriquez DO Unavailable [phone] Matthias Barber MD Unavailable + Zia Brown MD Unavailable [phone] Pcp, Unknown Primary Care Provider Unavailabl e Matthias Barber MD Primary Care Prov ider Matthias Barber MD Unavailable + Farhan JacksonSW Unavailable [phone] Encounter Details Date Type Department Care Team (Latest Contact Info) Description 11/28/2017 Transcribe Orders [facility] Laboratory [address] [phone] Luzma Canseco PA-C [address] [place] [address] Diarrhea, unspecified type (Primary Dx) Social History Tobacco Use Types Packs/Day Years Used Date Smoking Tobacco: Never Assessed Comments Unknown Sex and Gender Information Value Date Recorded Sex Assigned at Female 03/27/2019 10:26 PM EDT Legal Sex Female 7:13 PM EST Gender Identity Female 03/27/2019 10:26 PM EDT Sexual Orientation Straight 03/27/2019 10 :26 PM EDT documented as of this encounter Plan of Treatment Not on file documented as of this encounter Results * C-Reactive Protein (11/28/2017 11:14 AM EST) C REACTIVE PROTEIN 0.1 0 - 0.5 mg/L [facility] Blood 11/28/2017 11:1 4 AM EST 11/28/2017 11:22 AM EST us Luzma Canseco PA-C LAB BLOOD ORDERABLES Final Resu lt Performing Organization Address City/State/[facility] Co de Phone Number [address] [address] * (ABNORMAL) Comprehensive metabolic panel (11/28/2017 11:14 AM EST) SODIUM 143 133 - 146 mmol/L [facility] POTASSIUM 4.3 3.3 - 5.1 mmol/L [facility] CHLORIDE 105 96 - 108 mmol/L [facility] CO2 24 21 - 35 mmol/L [facility] BUN 25(H) 6 - 19 mg/dL [facility] CREATININE 0.70 0.5 - 1.5 mg/dL [facility] GLUCOSE 95 70 - 99 mg/dL [facility] ALBUMIN 4.7 3.9 - 4.8 g/dL [facility] TOTAL PROTEIN 7.4 6.5 - 8.0 g/dL [facility] CALCIUM 9.2 8.4 - 10.3 mg/dL [facility] ALKALINE PHOSPHATASE 78 39 - 117 U/L [facility] TOTAL BILIRUBIN 0.2 0 - 1.2 mg/dL [facility] AST 17 0 - 37 U/L [facility] ALT 19 0 - 40 U/L [facility] GLOBULIN 2.7 1 - 4.8 g/dL [facility] EGFR >60 >60 mL/min/1.7 3m2 [facility] Comment:Abnormal if <60. If patient is -Hungarian, multiply the result by 1.21. ANION GAP 18 10 - 20 mmol/L [facility] Blood 11/28/2017 11:1 4 AM EST 11/28/2017 11:22 AM EST us Luzma Canseco PA-C LAB BLOOD ORDERABLES Final Resu lt [facility] [address] [place] [address] * (ABNORMAL) CBC and differential (11/28/2017 11:14 AM EST) WBC 7.62 3.40 - 11.20 K/uL [facility] RBC 5.26(H) 3.80 - 4.80 M/uL [facility] HGB 14.4 12.0 - 15.0 g/dL [facility] HCT 44.9 36.0 - 46.0 % [facility] PLT 268 130 - 400 K/uL [facility] MCV 85.4 79.0 - 98.0 fL [facility] MCH 27.4 27.0 - 34.8 pg [facility] MCHC 32.1 31.5 - 36.0 g/dL [facility] RDW 13.5 10.8 - 14.6 % [facility] MPV 11.1 9.4 - 12.4 fl [facility] NRBC 0.00 /100 WBCs [facility] ABSOLUTE NRBC 0.00 K/uL [facility] DIFF METHOD Auto [facility] NEUTS 58.2 45.30 - 77.70 % [facility] LYMPHS 32.2 12.30 - 39.70 % [facility] MONOS 6.4 4.10 - 12.80 % [facility] EOS 2.6 0 - 7.2 % [facility] BASOS 0.5 0 - 2.80 % [facility] Granulocytes, immature (%) 0.1 0.0 - 0.9 % [facility] ABSOLUTE NEUTS 4.43 1.40 - 7.70 K/uL [facility] ABSOLUTE LYMPHS 2.45 0.60 - 3.20 K/uL [facility] ABSOLUTE MONOS 0.49 0.11 - 0.59 K/uL [facility] ABSOLUTE EOS 0.20 0.01 - 0.50 K/uL [facility] ABSOLUTE BASOS 0.04 0.00 - 0.08 K/uL [facility] Granulocytes, immature 0.01 0.00 - 0.05 K/uL [facility] Blood 11/28/2017 11:1 4 AM EST 11/28/2017 11:22 AM EST Luzma Canseco PA-C LAB BLOOD ORDERABLES Final Resu lt Performing Organization Address City/[facility]/ZIP Co de Phone Number [address] [address] * Tissue transglutaminase IgA (11/28/2017 11:14 AM EST) TTG IGA ANTIBODY <1.2 <4.0 (Negative) U/mL [facility] DPT OF LAB MED AND PAT+ Blood 11/28/2017 11:1 4 AM EST 11/28/2017 11:22 AM EST Luzma Canseco PA-C LAB BLOOD ORDERABLES Final Resu lt Performing Organization Address City/[facility]/ZIP Co de Phone Number [facility] DPT OF LAB MED AND PAT+ [address] [place] [address] * Immunoglobulin A (11/28/2017 11:14 AM EST) IgA 103 70 - 400 mg/dL [facility] Blood 11/28/2017 11:1 4 AM EST 11/28/2017 11:22 AM EST Luzma Canseco PA-C LAB BLOOD ORDERABLES Final Resu lt Performing Organization Address City/[facility]/ZIP Co de Phone Number [address] [address] documented in this encounter Visit Diagnoses Diagnosis Diarrhea, unspecified type- Primary documented in this encounter Care Teams Manager Intensive Care Relationship Specialty Start Date End Date Matthias Barber MD [email or web address] PCP - General 01/14/16 08/31/19 Pcp, Unknown PCP - General 09/01/19 01/10/20 Matthias Barber MD [address] [place] [address] [email or web address] PCP - General Family Medicine 01/11/20 Pcp, Unknown 01/14/16 01/29/20 Marko Manriquez DO [address] [place] [address] [facility], [place] [address] Historical LMR Provider 08/29/17 Matthias Barber MD [address] [place] [address] [email or web address] Historical LMR Provider 08/29/17 11/19/21 Zia Brown MD [address] [place] [address] [email or web address] Historical LMR Provider 08/29/17 11/19/21 Matthias Barber MD [address] [place] [address] [email or web address] Insurance Assigned Provider 12/18/21 05/19/23 Farhan Jackson, [address] [address] [email or web address] New Car Inspector 05/01/22 07/31/22 documented as of this encounter Additional Source Comments The information contained in this document represents components of the legal health record. It is not the complete legal health record.[facility]
--- OUTSIDE RECORDS SUMMARY | 2025-08-22 08:22 | XMS_ITS | Encounter Summary ---
Author Organization [employer] Address [address] [place] [address] 7 [place] [address] Care Team Providers Care Program Manager Rn Name Role Phone Linda Leahy MD Primary Care Provider [phone] Reason for Visit * Reason Onset Date Comments Referral 09/03/2023 Encounter Details Date Type Department Care Team ([facility] Contact Info) Description 09/03/[address] [facility] CHC MED & PEDS [address] [place] [address] Linda Leahy MD [address] [place] [address] Referral Social History Tobacco Use Types Packs/Day Years Used Date Smoking Tobacco: Former Cigarettes Passive Smoke Exposure: Past Smokeless Tobacco: Never Depression Answer Date Recorded Patient Health Questionnaire-9 Score 22 07/19/2023 Housing Stability Answer Date Recorded What is your housing situation today? I have zinaida swanson 08/29/[address] you [...] Answer Date Recorded Patient Health Questionnaire-2 Score 3 07/19/2023 Comments Unknown Sex and Gender Information Value Date Recorded Sex Assigned at Female 05/08/2023 9:26 AM EDT Legal Sex Female 9:22 AM EDT Gender Identity Female 05/08/2023 9:26 AM EDT Sexual Orientation Straight 03/10/2024 2: 39 PM EDT documented as of this encounter Miscellaneous Notes * Telephone Encounter - Mary aJne Redd - 10/08/2023 2:00 PM EST Referral faxed to [facility] * Telephone Encounter - Lanette Little - 10/08/2023 1:06 PM EST Tc from kathy with [facility] requesting a referral for pt. Would like referral to be will 60 visits starting from 08/30/23-08/30/24 Location: [address] [place] [address] Date: n/a Time: n/a Specialty: physical therapy for both knees * Telephone Encounter - Lanette Little - 09/03/2023 4:15 PM EDT Tc from pt requesting a call in regards to ortho referral for both knees. Please contact pt at [phone] documented in this encounter Plan of Treatment Upcoming Encounters Date Type Department Care Team (Late st Contact Info) Description 10/12/2025 1:45 PM EST Office Visit [facility] CHC MED & PEDS [address] [place] [address] Linda Leahy MD [address] [place] [address] documented as of this encounter Visit Diagnoses Not on filedocumented in this encounter Additional Health Concerns Assessment Noted Time PHQ-9 Depression Total Score: 22 023 1:16 PM EDT documented as of this encounter Care Teams Program Manager Rn Relationship Specialty Start Date End Date Linda Leahy MD [address] [place] [address] PCP - General Family Medicine 07/19/23 documented as of this encounter
--- OUTSIDE RECORDS SUMMARY | 2025-08-22 08:22 | XMS_ITS | Encounter Summary ---
Author Organization [facility] Address [address] [employer] [facility] [address] [place] [address] Phone Care Team Providers Care Bow String Maker Name Role Phone Matthias Barber MD Primary Care Prov ider Pcp, Unknown Unavailable Unavailable Marko Manriquez DO Unavailable [phone] Matthias Barber MD Unavailable + Zia Brown MD Unavailable [phone] Pcp, Unknown Primary Care Provider Unavailabl e Matthias Barber MD Primary Care Prov ider Matthias Barber MD Unavailable + Farhan JacksonSW Unavailable [phone] Encounter Details Date Type Department Care Team (Late st Contact Info) Description 01/31/2018 Procedure Pass [facility] Admitting Dept Virtual Department [address] [place] [address] Social History Tobacco Use Types Packs/Day Years Used Date Smoking Tobacco: Every Day Cigarettes Smokeless Tobacco: Never Alcohol Use Standard Drinks/Week Comments No 0 (1 standard drink = 0.6 oz pur e alcohol) rare Comments Unknown Sex and Gender Information Value [...] on filedocumented in this encounter Care Teams Bow String Maker Relationship Specialty Start Date End Date Matthias Barber MD [email or web address] PCP - General 01/14/16 08/31/19 Pcp, Unknown PCP - General 09/01/19 01/10/20 Matthias Barber MD [address] [place] [address] [email or web address] PCP - General Family Medicine 01/11/20 Pcp, Unknown 01/14/16 01/29/20 Marko Manriquez DO [address] [place] [address] Orth[facility] Sports Medicine, [place] [address] Historical LMR Provider 08/29/17 Matthias Barber MD [address] [place] [address] [email or web address] Historical LMR Provider 08/29/17 11/19/21 Zia Brown MD [address] [address] [email or web address] Historical LMR Provider 08/29/17 11/19/21 Matthias Barber MD [address] [place] [address] [email or web address] Insurance Assigned Provider 12/18/21 05/19/23 Farhan Jackson LICSW [address] [place] [address] [email or web address] Cell Maker 05/01/22 07/31/22 documented as of this encounter Additional Source Comments The information contained in this document represents components of the legal health record. It is not the complete legal health record.[facility]
== END 2025-08-22 08:18 | disposition home or self-care (01) ==
LOC: HO.MAMMO 08:17
PROVIDERS: PCP Family Medicine; Visit Provider Family Medicine
DX: Z12.31 Encounter for screening mammogram for malignant neoplasm of breast (principal)
CPT/HCPCS: 77063; 77067

== ENCOUNTER 2025-08-28 08:05 | Outpatient (AMB) | payer OTHER, SELFPAY ==
--- NOTE | 2025-08-28 08:31 | A.OFFVIS_ITS ---
Intake Visit Reasons: INCONTINENCE 2022 Intake Note: Patient presents today for a follow up for Mixed Incontinence: Meds- Tolterodine Allergies to Antibiotic- No Known Allergies Blood Thinner- Aspirin PVR- 0 mL Yarder Puncher Required: No Accompanied by: Self / Same As Patient Allergies No Known Allergies Allergy (Verified 09/20/23 11:04) Medication List - Last Reconciled 08/28/25 by Rajeev Xavier MD cyclobenzaprine 10 mg PO DAILY PRN gabapentin 300 mg PO TID mirabegron ER (Myrbetriq) 25 mg PO DAILY naproxen 500 mg PO Q12H HPI Comments Details: 08/28/2025 History of Present Illness The patient is a 55-year-old female presenting with urinary incontinence. She has a history of bladder control issues, in 2010 or 2011, she underwent urodynamic testing a bladder lift procedure, was discussed but she declined due to concerns about being a test subject for new procedures. Per patient during an exam by her primary care physician she was told her bladder has dropped and was referred to us for further evaluation. Since 2016, she has been using disposable underwear and bladder control pads due to the severity of her symptoms, which include involuntary leakage during activities such as walking h er dog, coughing, sneezing. She has not undergone any pelvic surgeries and has had two vaginal deliveries in 1991 and 1996, with the largest baby weighing 7 pounds 14 ounces. She is currently on Myrbetriq 25 mg daily for overactive bladder symptoms. The patient also experiences episodes of diarrhea and occasional constipation, managed with exbq-qcc-hbqzcia medication. Results - pelvic exam-grade 2 cystocele, cervix supported. Vaginal atrophy. - Catheterized urine volume: 25 mL Plan 1. Urinary Incontinence, 2. Cystocele, 3. Vaginal Atrophy, 4. OAB. - Plan to perform urodynamic testing to reassess bladder function. - Patient advised to stop Myrbetriq five days prior to testing. - Prescribed local vaginal estrogen to maintain vaginal tissue health. PFSH Surgical History History of myringotomy Hx of adenoidectomy Hx of tonsillectomy Hx of total knee replacement History of open head injury History of surgery of head History of surgery on lower extremity Family History Father Adopted Family history not known due to adoption Mother No problems noted. Social History Alcohol intake: current Alcohol intake frequency: holidays/special occasions only Patient Tobacco Use Status: Former Tobacco user Review of Systems Const All systems reviewed & are unremarkable except as noted in HPI and below Reports no additional complaints Eyes Reports no additional complaints ENT Reports no additional complaints Card Reports no additional complaints Resp Reports no additional complaints GI Reports no additional complaints Reports as per HPI Musc Reports no additional complaints Skin/Breast Reports system reviewed and no additional complaints, except as documented Neuro Reports no additional complaints Psych Reports no additional complaints Endo Reports no additional complaints Buck/Lymph Reports no additional complaints Aller/Immun Reports no additional complaints Physical Exam Const General: cooperative, healthy appearing and no acute distress Orientation/consciousness: patient oriented x3 HEENT Head: Yes normal to inspection, Yes normocephalic and Yes atraumatic Eyes Conjunctivae: conjunctivae normal Neck Neck: Yes normal visual inspection and Yes trachea midline Chest Chest palpation & inspection: normal inspection of the chest Resp Effort & Inspection: normal respiratory effort GI Inspection: Yes normal to inspection Palpation (GI): Soft to palpation Other: Grade 2 cystocele General: No no CVA tenderness External Female Exam: normal external appearance Speculum Exam - Vagina: vagina atrophic Back/Spine/Pelvis Back: No no CVA tenderness Neuro General: patient oriented x3 Psych Appearance: grossly normal Office Procedures Bladder/Catheter Procedure Details: Under sterile technique a 14 Indonesian catheter was passed transurethrally, 25 mL urine drained 92407-Kqaxmx Bladder Catheter Procedure code (CPT) selection complete Post Void Residual Post Residual Void Post Void Residual (PVR): 0 [id number]-Gxox Void Residual by ultrasound Results AMB Urinalysis, Automated UA Leukoctes 0 Daniel/uL Last Edit by SARAH Song on 08/28/25 08:47 UA Nitrite Last Edit by Darby Colon, CCMA on 08/28/25 08:47 UA Urobilinogen 0.2 mg/dL Last Edit by Darby Colon, [facility] on 08/28/25 08:47 UA Protein 0 mg/dL Last Edit by Darby Colon, [facility] on 08/28/25 08:47 UA pH 6.0 Last Edit by Darby Colon, [facility] on 08/28/25 08:47 UA Blood 0 Mario/uL Last Edit by Darby Colon, [facility] on 08/28/25 08:47 UA Specific [place] 1.015 Last Edit by Darby Colon, [facility] on 08/28/25 08:4 7 UA Ketone Last Edit by Darby Colon, [facility] on 08/28/25 08:47 UA Bilirubin 0 mg/dL Last Edit by Darby Colon, [facility] on 08/28/25 08:47 UA Glucose 0 mg/dL Last Edit by Darby Colon, [facility] on 08/28/25 08:47 Results Reviewed Results Reviewed: Laboratory Last Values Urine pH (Auto) 6.0 08/28/25 08:46 Specific [place] (Auto) 1.015 08/28/25 08:46 Urine Protein (Auto) 0 mg/dL 08/28/25 08:46 Glucose (UA)(Auto) 0 mg/dL 08/28/25 08:46 Urine Blood (Auto) 0 Mario/uL 08/28/25 08:46 Urine Bilirubin (Auto) 0 mg/dL 08/28/25 08:46 Urine Urobilinogen (Auto) 0.2 mg/dL 08/28/25 08:46 Leukocyte Esterase (Auto) 0 Daniel/uL 08/28/25 08:46 Assessment & Plan Assessment & Plan (1) Urinary incontinence: Code(s): R32 - Unspecified urinary incontinence Category: Medical (2) Pelvic floor weakness: Code(s): N81.89 - Other female genital prolapse Category: Medical (3) Vaginal atrophy: Code(s): N95.2 - Postmenopausal atrophic vaginitis Category: Medical (4) Female cystocele: Code(s): N81.10 - Cystocele, unspecified Category: Medical (5) OAB (overactive bladder): Code(s): N32.81 - Overactive bladder Category: Medical Plan Plan 1. Urinary Incontinence, 2. Cystocele, 3. Vaginal Atrophy - Plan to perform urodynamic testing to reassess bladder function. - Patient advised to stop Myrbetriq five days prior to testing. - Prescribed local vaginal estrogen to maintain vaginal tissue health. Orders: Orders AMB Bladder/Catheter Procedure Today R32 - Unspecified urinary incontinence Medications: New estradiol 0.01%(0.1mg/gram) (Estrace) Apply a pea-sized amount to fingertip vaginally daily at bedtime 42.5 grams 1RF Coding Level of Care Code New Pt Level 4 (31430) Diagnoses Urinary incontinence R32 Pelvic floor weakness N81.89 Vaginal atrophy N95.2 Female cystocele N81.10 OAB (overactive bladder) N32.81 CPT Codes Bladder/Catheter Procedure - CPT: 57778-Flgbjs Bladder Catheter ([id number]) Post Residual Void - PVR CPT Code: 49092-Bpco Void Residual by ultrasound ([id number])
== END 2025-08-28 09:42 | disposition home or self-care (01) ==
LOC: HO.HUSH 08:06
PROVIDERS: PCP Family Medicine; Visit Provider Urology
DX: R32 Unspecified urinary incontinence (principal); N81.89 Other female genital prolapse; N95.2 Postmenopausal atrophic vaginitis; N81.10 Cystocele, unspecified; N32.81 Overactive bladder
CPT/HCPCS: 51701; 99214

== ENCOUNTER → 2025-08-28 08:05 | Outpatient (BNVA) | payer OTHER, SELFPAY | PROVIDERS: PCP Family Medicine; Visit Provider Urology | DX: R32 Unspecified urinary incontinence (principal); N81.89 Other female genital prolapse; N95.2 Postmenopausal atrophic vaginitis; N81.10 Cystocele, unspecified; N32.81 Overactive bladder | CPT/HCPCS: 51701; 51798; 99212 ==

== ENCOUNTER 2025-11-03 09:39 | Outpatient (AMB) | payer OTHER, SELFPAY ==
--- NOTE | 2025-11-03 09:48 | A.OFFVIS_ITS ---
Vital Signs 11/03/25 09:52 Height 5 ft 4 in Weight 176 lb BMI 30.2 Blood Pressure Location Lt brachial Position Sitting Intake Visit Reasons: Irritable bowel syndrome Intake Note: Patient new consult for IBS. Patient cc: abdominal bloating, between diarrhea and constipation and poor appetite. Denies any otHer GI issues. 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 Accompanied by: Self / Same As Patient Allergies diphenhydramine (From Benadryl) Allergy (Intermediate, Verified 11/03/25 09:51) Unknown Penicillins Allergy (Intermediate, Verified 11/03/25 09:51) Unknown Medication List - Last Reconciled 11/03/25 by Christina Lozano, MISTI cyclobenzaprine 10 mg PO DAILY PRN dicyclomine 10 mg PO BID estradiol 0.01%(0.1mg/gram) (Estrace) Apply a pea-sized amount to fingertip vaginally daily at bedtime fremanezumab-vfrm (Ajovy) 225 mg subcut QMONTH gabapentin 300 mg PO TID mirabegron ER (Myrbetriq) 25 mg PO DAILY naproxen 500 mg PO Q12H omeprazole 20 mg PO DAILY PRN prazosin 1 mg PO BEDTIME rizatriptan 10 mg PO Q2-4H PRN sertraline 100 mg PO DAILY HPI HPI Irritable bowel syndrome: Details: Patient is a 55-year-old female with PMH of bipolar, depression, migraines, reactive airway disease. Referred by PCP for further evaluation of diarrhea. She has a history of alternating diarrhea and constipation for years. She reports periods of very loose stool or diarrhea followed by a day or two of constipation. For at least the past 1.5 years, she has experienced fecal incontinence, which can occur without a sensation of needing to defecate or may feel like she is just passing gas. If she does feel the urge, she is unable to hold it. She does not typically experience abdominal pain with diarrhea, but she does get cramping with constipation, which is relieved by a bowel movement. She has noticed rare blood in the stool, about once every few months, which she associates with constipation. In terms of triggers, she reduced her coffee intake to one cup per day about a year and a half ago, but this did not significantly change her symptoms. She has been trying to eat more fruits and vegetables and has increased her water intake, which has resulted in less severe diarrhea. She denies any nausea, vomiting, or unexplained weight loss. Her weight fluctuates between 174 and 186 lbs. She reports heartburn after eating red sauce, which she manages with as- needed xyuu-oke-hwkbcbi omeprazole. Her PCP had prescribed Bentyl (dicyclomine) and Imodium. She takes the dicyclomine as needed for cramping associated with constipation and Imodium for diarrhea. Her past medical history is significant for migraines, for which she receives Ajovy injections and takes a triptan as needed, and an overactive bladder treated with Myrbetriq. She was recently diagnosed with a bladder prolapse and is being seen by urology for further management. She had a prior colonoscopy in [place] but does not recall the results. A Cologuard test in 2022 was completed and reported as negative. She is adopted and has no knowledge of her biological family medical history. She had atypical cervical cells treated with cryosurgery in 1992. Patient denies: fever/chills, n/v, appetite changes, regurgitation, dysphasia, unintentional wt loss, ab pain or melena/hematochezia. Social hx: -ETOH use reports drinking approximately three times a year, consuming a couple of shots of tequila or a White Eritre[place], typically around holidays. -denies recreational drug use -former smoker, cessation 3 years ago. She currently uses a vape daily with 1 mg of nicotine, with the goal of reducing to zero. - family hx as below -denies personal hx of CA -denies significant cardiopulmonary history -tolerated anesthesia in the past without difficulty. [facility] Medical History (Updated 11/03/25 @ 10:46 by Christina Lozano CNP) Acid reflux Colon cancer screening Fecal incontinence Surgical History History of myringotomy Hx of adenoidectomy Hx of tonsillectomy Hx of total knee replacement History of open head injury History of surgery of head History of surgery on lower extremity Family History Father Adopted Family history not known due to adoption Mother No problems noted. Social History Alcohol intake: current Alcohol intake frequency: holidays/special occasions only Patient Tobacco Use Status: Former Tobacco user Review of Systems Const Reports as per HPI ENT Reports as per HPI Card Reports as per HPI Resp Reports as per HPI GI Reports as per HPI Reports as per HPI Physical Exam Vital Signs: BMI result Body Mass Index 30.2 Const General: healthy appearing, no acute distress and well developed Nutritional Appearance: average body habitus Orientation/consciousness: patient oriented x3 HEENT Head: Yes normal to inspection, Yes normocephalic and Yes atraumatic Face and sinus: Yes normal facial exam Eyes General: appearance normal, both eyes and all related structures Neck Neck: Yes normal visual inspection Resp Effort & Inspection: normal respiratory effort, able to speak in complete sentences, no tracheal deviation and symmetric chest movement Cardio Jugular venous distension: no JVD GI Inspection: Yes normal to inspection, No distended, Yes obesity and Yes striae Palpation (GI): Soft to palpation, not firm, nontender and No hepatosplenomegaly present Auscultation: normoactive bowel sounds Rectal Exam - Female: visual inspection normal, decreased sphincter tone (minimal ), No Internal hemorrhoid(s) present, No Rectal prolapse, No fecal impaction, No Lesions present (GI), No Anal fissure(s) present, No Fistula present (GI), No Laceration(s) present (GI), No Excoriation present (GI), No mass and No tenderness Neuro General: patient oriented x3 Gait exam (Neuro): Normal gait present Psych Appearance: grossly normal Mental Status: mental status grossly normal Speech and movement: Normal speech and movement present Affect: normal affect Attitude: cooperative Thought process: Normal thought process present Thought content: Normal thought content present Insight: Good insight present (Psych) Judgement: Good judgement present (Psych) Assessment & Plan Assessment & Plan (1) Fecal incontinence: Code(s): R15.9 - Full incontinence of feces Category: Medical Qualifiers: Fecal incontinence type: fecal urgency Qualified Code(s): R15.9 - Full incontinence of feces; R15.2 - Fecal urgency Plan: The patient's symptoms are not entirely consistent with classic IBS due to the lack of pain with diarrhea, but cramping with constipation is consistent. The fecal incontinence is a significant symptom requiring further evaluation. It is noted that the patient's bladder prolapse could be a contributing factor. - Plan is to order blood work to check for celiac disease, inflammation, and updated liver function tests. - Stool testing will be ordered to rule out infection, parasites, and to check for inflammation. - A colonoscopy is recommended and has been ordered due to the fecal incontinence and unknown family history. - The patient will continue to use Imodium for diarrhea and dicyclomine for cramping as needed. - She is encouraged to continue her dietary modifications, including increased water and fiber. (2) Acid reflux: Code(s): K21.9 - Gastro-esophageal reflux disease without esophagitis Category: Medical Qualifiers: Esophagitis presence: esophagitis presence not specified Qualified Code(s): K21.9 - Gastro-esophageal reflux disease without esophagitis Plan: The patient reports heartburn triggered by red sauce and spicy foods. - She manages symptoms with dietary avoidance and occasional phmx-kdh-wqjkqpu omeprazole. She declined an upper endoscopy at this time, citing good control of her symptoms with diet. (3) Colon cancer screening: Code(s): Z12.11 - Encounter for screening for malignant neoplasm of colon Category: Medical Plan: Last screening approximately 7 years ago with change in bowel pattern. Also family history unknown. Screening indicated as above. Medications: -prescriptions for laxative tablets and PEG sent to pharmacy; instructions on clear liquid diet given. Patient educated on scheduling process, procedure preparation, including avoiding certain foods and ensuring clear liquid intake Advised on necessity for ride post-procedure due to sedation. (4) Female cystocele: Code(s): N81.10 - Cystocele, unspecified Category: Medical Plan: The patient was recently diagnosed with a bladder prolapse and has an upcoming appointment with a urologist for further evaluation and management, which may include surgery. Plan Follow-up after endoscopy or sooner as needed Time: I spent a total of 45 minutes on the date of encounter which includes: Preparing to see the patient (reviewed previous documentation, test results and medical history) Performing a medically appropriate exam and/or evaluation Ordering medications, tests, and procedures Documenting clinical information in the health record Orders: Orders C Reactive Protein Today R15.9 - Full incontinence of feces Transglutaminase IgA Today R15.9 - Full incontinence of feces Ova and Parasite Today R15.9 - Full incontinence of feces Liver Panel Today R15.9 - Full incontinence of feces Calprotectin, Fecal Today R15.9 - Full incontinence of feces GI Panel Today R15.9 - Full incontinence of feces Referrals GI Procedure Notification R15.9 - Full incontinence of feces, Z12.11 - Encounter for screening for malignant neoplasm of colon Medications: New bisacodyl take four tablets once day of colonoscopy prep 20 mg (4 x 5 mg) PO ONCE 4 tabs 0RF polyethylene glycol 3350 (Miralax) per colonoscopy prep instructions 238 grams PO ONCE 238 grams 0RF Coding Level of Care Code New Pt New Pt Level 4 (21992) Patient Type New Diagnoses Incontinence of feces with fecal urgency R15.9; R15.2 Fecal incontinence type: fecal urgency Gastroesophageal reflux disease, unspecified whether esophagitis present K21.9 Esophagitis presence: esophagitis presence not specified Colon cancer screening Z12.11 Female cystocele N81.10
[2025-11-03 09:52] VITALS: BMI 30.2
--- OUTSIDE RECORDS SUMMARY | 2025-11-03 10:30 | XMS_ITS | Encounter Summary ---
Author Organization [facility] Address [address] [place] [address] [address] [place] [address] Care Team Providers Care Sheet Combining Operator Name Role Phone Linda Leahy MD Primary Care Provider [phone] Reason for Visit * Reason Comments Med Refill Encounter Details Date Type Department Care Team ([facility] Contact Info) Description 10/03/2025 Refill [facility] [address] [place] [address] Linda Leahy MD [address] [place] [address] Social History Tobacco Use Types Packs/Day Years [...] documented as of this encounter Care Teams Sheet Combining Operator Relationship Specialty Start Date End Date Linda Leahy MD [address] [place] [id number] PCP - General Family Medicine 07/19/23 Venus Ardon Psychiatrist 10/12/25 documented as of this encounter
--- OUTSIDE RECORDS SUMMARY | 2025-11-03 10:30 | XMS_ITS | Clinical Summary ---
Author Organization [employer] Address [address] [place] [address] [address] [place] [address] Care Team Providers Care Vessel Ordinary Seaman Name Role Phone Linda Leahy MD Primary Care Provider [phone] Allergies Active Allergy Reactions Criticality Noted Date [...] 30 (thirty) days. 06/19/20 24 Active rizatriptan CONSTRUCTION REPRESENTATIVE (Maxalt-CONSTRUCTION REPRESENTATIVE) 10 MG disintegrating tablet Take 10 mg by mouth if needed. 09/24/20 24 Active albuterol 108 (90 Base) MCG/ACT inhalerIndication s:Reactive airway disease without complication, unspecified asthma severity, unspecified whether persistent Inhale 2 puffs every 4 (four) hours if needed for wheezing. 18 g 2 06/19/20 25 2025 Active cyclobenzaprine (Flexeril) 10 MG tabletIndications :Pain Take 0.5 tablets (5 mg) by mouth if needed in the morning, at noon, and at bedtime for muscle spasms. 90 tablet 5 06/19/20 25 Active dicyclomine (Bentyl) 10 MG capsuleIndication s:Irritable bowel syndrome with diarrhea Take 1 capsule (10 mg) by mouth 4 times daily. 120 capsule 5 06/19/20 Active gabapentin (Neurontin) 300 MG capsule TAKE 1 CAPSULE BY MOUTH EVERY NIGHT AT BEDTIME 270 capsule 07/15/20 Active diclofenac (Voltaren) 75 MG EC tablet Take 1 tablet (75 mg) by mouth 2 times daily. Do not crush, chew, or split.TAKE 1 TABLET BY MOUTH TWICE DAILY NEEDED FOR MIGRAINE 60 tablet 08/18/20 Active loperamide (Imodium) 2 MG capsule 06/19/20 Active naproxen (Naprosyn) 500 MG tablet TAKE 1 TABLET BY MOUTH EVERY 12 HOURS 60 tablet 10/01/20 Active sertraline (Zoloft) 50 MG tablet 10/01/20 Active prazosin (Minipress) 1 MG capsule 10/01/20 Active fremanezumab (Ajovy) 225 MG/1.5ML auto-injector Inject 225 mg under the skin every 28 (twenty-eigh t) days. 09/21/20 Active Estradiol 0.01 % cream APPLY A PEA-SIZED AMOUNT WITH FINGERTIP VAGINALLY EVERY NIGHT AT BEDTIME 08/28/20 Active mirabegron ER (Myrbetriq) 50 MG 24 hr tablet TAKE 1 TABLET(50 MG) BY MOUTH AT BEDTIME. DO NOT CRUSH, CHEW, OR SPLIT 90 tablet 1 10/26/20 Active busPIRone (Buspar) 7.5 MG tabletIndications :HERMELINDA (generalized anxiety disorder) Take 1 tablet (7.5 mg) by mouth 2 times daily. 60 tablet 2 07/01/20 25 2024 Discontinued(T herapy completed) Myrbetriq 50 MG 24 hr tablet TAKE 1 TABLET(50 MG) BY MOUTH AT BEDTIME. DO NOT CRUSH, CHEW, OR SPLIT 30 tablet 1 08/18/20 25 2024 Discontinued RSVPreF3 Vac Recomb Adjuvanted 120 MCG/0.5ML reconstituted suspension Inject 0.5 mL into the muscle 1 (one) time for 1 dose. 1 each 10/12/20 25 2024 Active Problems Problem Noted Date Diagnosed Date [...] recommended reduction of 20-30% of maintenance calories; voice network engineer referral offered. Recommended to decrease soda and sugary beverage consumption. Recommended at least 20 g per meal of protein to assist with satiety. Recommended at least 150 min/week of moderate intensity exercise. Assessment & Plan (07/19/2023 4:55 PM EDT): Discussed calorie deficit, recommended reduction of 20-30% of maintenance calories; voice network engineer referral offered. Recommended to decrease soda and [...] therapy and psychiatry. At this time Kari Nelsno meets criteria for Visit Diagnoses: Problem List Items Addressed This Visit Other Bipolar disorder, unspecified (CMS/HCC) Excoriation, neurotic Patient ready to address current needs Yes Strengths- Kari has great insight on her symptoms and a family that is supportive. She is in the action stage of change PLAN: 1. Follow up with [facility] [place]: Recommended for follow-up: As needed 2. Patient goal is to engage in OP therapy and psychiatry 3. Behavioral Recommendations a. OP therapy b. Psychiatry c. [facility] services if needed while on the OP [...] at this time. At this time Kari Nelosn meets criteria for Visit Diagnoses: Problem List Items Addressed This Visit Other Anxiety and depression Rule out- Bipolar I Patient ready to address current needs Yes Strengths include motivation to obtain both medical and behavioral health services. PLAN: 1. Follow up with [facility] [place]: Not recommended for follow-up 2. Patient goal is be connected to behavioral health services 3. Behavioral Recommendations a. Patient will engage in OP therapy, once established b. Patient will engage with medical care, once PCP established c. Patient may contact [facility] [place], if needed Resolved Problems Problem Noted Date Diagnosed Date Resolved Date Tinea corporis 07/19/2023 06/19/2025 Assessment & Plan (07/19/2023 4:58 PM EDT): Will send topical terbinafine. Encounters Date Type Department Care Team Description 10/24/2025 Refill [facility] [address] [place] [address] Linda Leahy MD 10/15/2025 Refill [facility] [address] [place] [address] Linda Leahy MD 10/12/2025 1:45 PM EST Office Visit [facility] [address] [place] [address] Linda Leahy MD Encounter for immunization (Primary Dx) 10/12/2025 Travel 10/06/2025 Telephone [facility] [address] [place] [address] Linda Leahy MD chart prep 10/03/2025 Refill [facility] [address] [place] [address] Linda Leahy MD 09/30/2025 Refill [facility] [address] [place] [address] Linda Leahy MD 09/29/2025 Patient Outreach [address] [address] Linda Leahy MD Pre-visit Planning (Pre-visit planning - LVM ) 08/20/2025 Telephone [facility] [address] [place] [address] Linda Leahy MD chart prep 08/17/2025 Refill [facility] [address] [place] [address] Linda Leahy MD 08/17/2025 Refill [facility] [address] [place] [address] Linda Leahy MD 08/13/2025 Patient Outreach [facility] [address] [place] [phone] Linda Leahy MD Pre-visit Planning (Pre visit planning LVM ) from Last 3 Months Immunizations Immunization Administration Dates Next Due HepB-CpG 10/12/2025 Influenza Injectable Quadriv alant Preservative Free IIV4 [...] Answer Date Recorded Patient Health Questionnaire-9 Score 3 10/12/2025 Patient Health Questionnaire-9 Score 3 10/12/2025 Last PHQ-9: Questionnaire Data Not on file 1 12/13/2024 Housing Stability Answer Date Recorded What is [...] Date Recorded Patient Health Questionnaire-2 Score 2 10/12/2025 Internet Access Answer Date Recorded Internet Access [...] Sign Reading Time Taken Comments Blood Pressure 132/80 10/12/2025 1:48 PM EST Pulse 76 10/12/2025 1:48 PM EST Temperature 36.6 C (97.8 F) 10/12/2025 1:48 PM EST Respiratory Rate 20 10/12/2025 1:48 PM EST Oxygen Saturation 97% 10/12/2025 1:48 PM EST Inhaled Oxygen Concentration - - Weight 80.7 kg (178 lb) 10/12/2025 1:48 PM EST Height 162.6 cm (5' 4 ) 10/12/2025 1:48 PM EST Body Mass Index 30.55 10/12/2025 1:48 PM EST Plan of Treatment Health Maintenance Due Date Last Done Comments CT Colonography 1970 Colonoscopy 1970 FIT 1970 Sigmoidoscopy 1970 RSV Patients and Patients Aged 60 years or older (1 - Risk 50-74 years 1-dose series) 2022 Hepatitis B Vaccines (2 of 2 - CpG 2-dose series) 11/09/2025 10/12/2025 Influenza Vaccine (#1) 2026 , 11/08/2018, 11/29/2017, Additional history exists Postponed from 07/13/2025 (Patient Refused) Alcohol/Substance Use Screening 06/19/2026 06/19/2025 Disability Screening 06/19/2026 06/19/2025 SDOH Screening 06/19/2026 06/19/2025 Zoster Vaccines (1 of 2) 06/19/2026 Pos tponed from 2022 (Patient Refused) FOBT 07/11/2026 07/11/2025 COVID-19 Vaccine ( - season) 2026 11/02/2022, 10/26/2021, 04/02/2021 Postponed from 07/13/2025 (Patient Refused) Depression Screening 10/12/2026 10/12/2025, 10/12/20 Tobacco Screening 10/12/2026 10/12/2025 Mammogram 08/22/2027 08/22/2025 Colorectal Cancer Screening 07/11/2028 FIT DNA/Cologuard 07/11/2028 07/11/2025 Lipid Panel 03/06/2029 03/06/2024 Cervical Cancer Screening 06/30/2030 HPV/Cotest 06/30/2030 06/30/2025 Pap Smear 06/30/2030 06/30/2025 DTaP/Tdap/Td Vaccines (3 - Td or Tdap) 06/19/2035 06/19/2025, 03/09/2015 Pneumococcal Vaccine: 50+ Years Completed 06/19/2025, 02/08/2016 [...] Procedure Name Priority Date/Time Associated Diagnosis Comments BI MAMMOGRAM SCREENING TOMOSYNTHESIS BILATERAL Routine 08/22/2025 8:20 AM EDT Breast cancer screening by mammogram LAB COLOGUARD COLON CANCER SCREEN Routine 07/11/2025 5:53 PM EDT Screening for colon cancer HEPATITIS C AB W/REFL TO HCV RNA, QN, PCR Routine 06/30/2025 9:55 AM EDT Encounter for health-related screening HIV 1/2 ANTIGEN/ANTIBODY, FOURTH GENERATION W/RFL Routine 06/30/2025 9:55 AM EDT Encounter for health-related screening HPV DNA, LOW/HIGH RISK Routine 9:29 AM EDT Cervical cancer screening PAP SMEAR Routine 06/30/2025 9:29 AM EDT Cervical cancer screening LIPID PANEL, STANDARD Routine 03/06/2024 1:14 PM EDT from Last 3 Months or Most Recently Relevant to Health Maintenance Results * BI Mammogram Screening Tomosynthesis Bilateral (08/22/2025 8:20 AM EDT) Anatomical Region Laterality Modality Breast Bilateral Mammography 08/22/2025 8:20 AM EDT Narrative 08/31/2025 8:53 AM EDT [address] [place] [address] Mammography Report Signed with Meryl Patient: Kari Nelson MR#: [id number] : 1970 Acct:[id number] Age/Sex: 55 / F ADM Date: 08/22/25 Loc: HO.MAMMO Attending Dr: Linda Leahy MD Ordering Physician: Linda Leahy MD Results: 0Inco mplete- Need Additional Imaging Evaluation Date of Service: 08/22/25 Follow Up: Additional Imagi ng Procedure(s): MM tomosynthesis screening BI Accession Number(s): [id number] cc: Linda Leahy MD Reason For Exam: 55 yo F who needs breast CA screening, [place] [facility] ADDENDUM ADDENDUM #1 ADDENDUM: Due to a software issue this mammogram was reviewed a second time. The findings and recommendations remain the same. OVERALL ASSESSMENT: Category 0: Incomplete - Need additional Imaging Evaluation RECOMMENDATION: Additional Imaging required Electronically signed by: Jaja Delarosa DO 09/14/2025 02:37 PM [facility] Addendum Dictated By: Jaja Delarosa DO Addendum Signed By: <Electronically signed by Jaja Delarosa DO in OV> 09/14/25 1437 Addendum Cosigned By: DD/ /06/820 TD/TT: 08/22/2510/06/835 EXAMINATION: MM SCREENING DIGITAL BREAST TOMOSYNTHESIS, BILATERAL CLINICAL INFORMATION: Screening. Asymptomatic. COMPARISON: Mammography: Comparison is made with available priors TECHNIQUE: Digital breast mammography with tomosynthesis is performed in both the craniocaudal and mediolateral oblique views along with computer-aided detection (CAD). FINDINGS: There are scattered areas of fibroglandular density. Left: There are no significant masses, abnormal calcifications, or other abnormalities. Right: Focal asymmetry upper central breast middle depth. No suspicious calcifications or other abnormal findings. MM/MM tomosynthesis screening BI IMPRESSION: Additional imaging is recommended ASSESSMENT: BI-RADS Category 0: Incomplete - Need additional Imaging Evaluation RECOMMENDATION: 1. Additional views of the right breast. 2. Targeted ultrasound if warranted after review of the additional views. 3. Radiology department staff will contact the patient for additional imaging. Additional Imaging required Electronically signed by: Jaja Delarosa DO 08/31/2025 08:50 AM EDT Dictated By: Jaja Delarosa DO Signed By: <Electronically signed by Jaja Delarosa DO in OV> 08/31/25 0850 DD/ 9 TD/TT: 08/22/25834 Overedge Machine Operator: Procedure Note Donotuseinterpreter, Image - 09/14/2025 [facility] [address] [place] [address] Mammography Report Signed with Addenda Patient: Kari Nelson AMR#: [id number] : 1970Acct:[id number] Age/Sex: 55 / FADM Date: 08/22/25 Loc: NAILA Attending Dr: Linda Leahy MD Ordering Physician: Linda Leahy MDResults: 0Inco mplete- Need Additional Imaging Evaluation Date of Service: 08/22/25Follow Up: Additional Imagi ng Procedure(s): MM tomosynthesis screening BI Accession Number(s): [id number] cc: Linda Leahy MD Reason For Exam: 55 yo F who needs breast CA screening, [place] [facility] ADDENDUM ADDENDUM #1 ADDENDUM: Due to a software issue this mammogram was reviewed a second time. The findings and recommendations remain the same. OVERALL ASSESSMENT: Category 0: Incomplete - Need additional Imaging Evaluation RECOMMENDATION: Additional Imaging required Electronically signed by: Jaja Delarosa DO 09/14/2025 02:37 PM EST RP Addendum Dictated By: Jaja Delarosa DO Addendum Signed By: <Electronically signed by DO Amanda in OV> 09/14/25 1437 Addendum Cosigned By: DD/ /06/820 TD/TT: 08/22/2510/06/835 EXAMINATION: MM SCREENING DIGITAL BREAST TOMOSYNTHESIS, BILATERAL CLINICAL INFORMATION: Screening. Asymptomatic. COMPARISON: Mammography: Comparison is made with available priors TECHNIQUE: Digital breast mammography with tomosynthesis is performed in both the craniocaudal and mediolateral oblique views along with computer-aided detection (CAD). FINDINGS: There are scattered areas of fibroglandular density. Left: There are no significant masses, abnormal calcifications, or other abnormalities. Right: Focal asymmetry upper central breast middle depth. No suspicious calcifications or other abnormal findings. MM/MM tomosynthesis screening BI IMPRESSION: Additional imaging is recommended ASSESSMENT: BI-RADS Category 0: Incomplete - Need additional Imaging Evaluation RECOMMENDATION: 1. Additional views of the right breast. 2. Targeted ultrasound if warranted after review of the additional views. 3. Radiology department staff will contact the patient for additional imaging. Additional Imaging required Electronically signed by: Jaja Delarosa DO 08/31/2025 08:50 AM EDT RP Dictated By: Jaja Delarosa DO Signed By: <Electronically signed by Jaja Delarosa DO in OV> 08/31/25 0850 DD/ 9 TD/TT: 08/22/25834 Overedge Machine Operator: us Linda Leahy MD IMG BI PROCEDURES Edited Resu lt - Final * Cologuard?? colon cancer screening (07/11/2025 5:53 PM EDT) Cologuard Result Negative Negative 07/17/20 11:46 PM EDT [facility] (CLIA #:[id number]) Comment: The Cologuard (TM) test was performed [...] Carmen et al, N Engl J Med 2014;370(14):1286- 1297) The normal value (reference range) for this assay is negative. COLOGUARD RE-SCREENING RECOMMENDATION: Periodic colorectal cancer screening is an important part of preventive healthcare for asymptomatic individuals at average risk for colorectal cancer. Following a negative Cologuard result, the [place] Cancer Society and U.S. Multi-Society Task Force screening guidelines recommend a Cologuard re-screening interval of 3 years. References: [place] Cancer Society Guideline for Colorectal Cancer Screening: https://www.cancer.org/cancer/zjapp-cayvqc-hxlhfd/dqykslwjz-izgbixkdu-flksouf/ac s-rec ommendations.html.; Magdi MIMS, Virgie CR, Radha TaylorK, Colorectal Cancer Screening: Recommendations for Physicians and Patients from the U.S. Multi-Society Task Force on Colorectal Cancer Screening , Am J Gastroenterology 2017; 112:4142-4687. TEST DESCRIPTION: Composite algorithmic analysis of stool [...] (Edilia Olea al, N Engl J Med 2014;370(14):4688-6790.) Cologuard may produce a false negative or false positive result (no colorectal cancer or precancerous polyp present at colonoscopy follow up). A negative Cologuard test result does not guarantee the absence of CRC or advanced adenoma (pre-cancer). The current Cologuard screening interval is every 3 years. ([place] Cancer Society and U.S. Multi-Society Task Force). Cologuard performance data in a 10,000 patient pivotal study using colonoscopy as the reference method can be accessed at the following location: www.[employer]/results. Additional description of the Cologuard test process, warnings and precautions can be found at www.[employer].com. Stool specimen (specimen) 07/11/2025 5:53 PM EDT 07/15/2025 1:58 PM EDT us Linda Leahy MD LAB MOLECULAR DIAGNOSTICS ORD ERABLES Final Result [facility] (CLIA #:[id number]) [address] [place] [address], * Hepatitis C Antibody with Reflex to HCV, RNA, Quantitative, Real-Time PCR (06/30/2025 9:55 AM EDT) Hepatitis C Antibody Nonreactive Nonreactive [facility] Comment:Antibodies to HCV no t detected; does not exclude early acuteHCV infection. Blood Venous blood specimen / Unknown 06/30/2025 9:55 AM EDT 06/30/2025 1:55 PM EDT Linda Leahy MD LAB BLOOD ORDERABLES Final Re sult Performing Organization Address City/[facility]/ZIP Co de Phone Number [facility] [address] [place] [address] [phone] * HIV-1/2 Antigen and Antibodies, Fourth Generation, with Reflexes (06/30/2025 9:55 AM EDT) [facility] HIV AB/AG Nonreactive Nonreactive [facility] Comment:HIV-1 p24 Ag and/or HIV-1/HIV-2 Ab not detected.A test result that is nonreactive does not exclude thepossibility of exposure to or infection with HIV-1 and/orHIV-2. Nonreactive results in this assay for individualswith prior exposure to HIV-1 and/or HIV-2 may be due toantigen and antibody levels that are below the limit ofdetection of this assay.The [employer] HIV Ag/Ab Combo assay result andsupplemental assay results should be interpreted inconjunction with the patient's clinical presentation,history and other laboratory results. If the results areinconsistent with clinical evidence, additional testing issuggested to confirm the result. Blood Venous blood specimen / Unknown 06/30/2025 9:55 AM EDT 06/30/2025 1:55 PM EDT Linda Leahy MD LAB BLOOD ORDERABLES Final Re sult Performing Organization Address City/[facility]/ZIP Co de Phone Number [facility] [address] [place] [address] [phone] * HPV High Risk with Reflex to Subtypes (06/30/2025 9:29 AM EDT) HPV High Risk Negative Negative [facility] HPV Genotype 16 Negative Negative [facility] HPV Genotype 18 Negative Negative [facility] Comment:HPV testing performe d at [facility] (CLIA#[id number]), [address] [place] [phone].Testing for HPV was performed using the Anup [...] sequences were not detected. Pap Vial 06/30/2025 9:2 9 AM EDT 07/01/2025 8:45 AM EDT us Linda Leahy MD LAB BLOOD ORDERABLES Final Re sult [facility] [address] [place] [phone] * Pap Smear (06/30/2025 9:29 AM EDT) Swab Cervical swab / Unknown 06/30/2025 9:29 AM EDT 07/01/2025 8:45 AM EDT Narrative [facility] - 07/06/2025 11:06 AM EDT ----- ------- Name: Kari Nelson Age/Sex: 55/F : 1970 Unit#: [id number] Attend Dr: Linda Leahy MD Re06/30/25 [address]: [facility] REF Location: [facility] Disch: ----- ------- SPEC : [id number] RECD: 07/01/25 STATUS: TERESA HCEN NUM: [id number] REHAN: 06/30/[address] [facility] [address]: Linda Leahy MD ENTERED: 07/01/25 SP TYPE: Pap Smr OTHR DR: ORDERED: Pap Smear Interpretation Satisfactory for [...] and HPV testing will be performed at [facility] (CLIA #[id number]), [address] [place] [address]. Testing for HPV was performed using the [...] detected. All professional services are performed by [facility] ([address] [place] [address]; ; CLIA #[id number]). The PAP Test is a screening procedure [...] Leahy MD LAB CYTOLOGY ORDERABLES Final Result [facility] [address] [place] [phone] * (ABNORMAL) Lipid Panel, Standard (03/06/2024 1:14 PM EDT) Triglycerides 82 <150 mg/dL [facility] Comment:Desirable Triglyceri de: less than 150 mg/dLBorderline High Triglyceride 150-199 mg/dLHigh Triglyceride: 200-499 mg/dLVery High Triglyceride: greater than or equal to 5OO mg/dL Cholesterol 196 <200 mg/dL [facility] Comment:Desirable Cholestero l: less than 200 mg/dLBorderline High Cholesterol: 200-239 mg/dLHigh Cholesterol: greater than 239 mg/dL LDL Cholesterol Calculated 122(H) <100 mg/dL [facility] Comment:Desirable LDL: less than 100 mg/dLNear Optimal/Above Optimal LDL: 110- 129 mg/dLBorderline High LDL: 130-159 mg/dLHigh LDL: 160-189 mg/dLVery High LDL: greater than or equal to 190 mg/dL HDL Cholesterol 58 >40 mg/dL [facility] Comment:Desirable HDL: great er than 40 mg/dL Note: This HDL assay may give artificially low results in patients with liver disease. 03/06/2024 1:14 PM EDT 03/06/2024 2:18 PM EDT us Linda Leahy MD LAB BLOOD ORDERABLES Final Re sult [facility] [address] [place] [phone] from Last 3 Months or Most Recently Relevant to Health Maintenance Insurance [facility] STANDARD [facility] ONE CARE < 65 Advance Directives Documents on File Type Date Recorded Patient It Infrastructure Architect Expl anation HealthCare Proxy 07/23/2023 [place] Health C are Proxy Care Teams Vessel Ordinary Seaman Relationship Specialty Start Date End Date Linda Leahy MD [address] [place] [address] PCP - General Family Medicine 07/19/23 Venus Ardon Psychiatrist 10/12/25
--- OUTSIDE RECORDS SUMMARY | 2025-11-03 10:30 | XMS_ITS | Clinical Summary ---
Author Organization [facility] Address [address] [facility] [address] [place] [address] Phone Care Team Providers Care Strip Machine Operator Name Role Phone Matthias Barber MD [...] route daily. Active gabapentin (NEURONTIN) 300 MG capsuleIndication s:Intractable migraine with aura with status migrainosus,Fibro myalgia Take 1 capsule (300 mg total) by mouth nightly at bedtime. 90 capsule 3 05/09/20 24 Active tolterodine (DETROL LA) 4 MG 24 hr capsule Take 4 mg by mouth daily. Active terbinafine HCL (LAMISIL) 250 mg tablet Take 1 tablet by mouth every morning. 03/10/20 24 Active naproxen (NAPROSYN) 500 MG tablet Take 500 mg by mouth. 01/19/20 21 Active XOPENEX HFA 45 mcg/actuation inhaler inhale 2 puffs by mouth every 6 hours as needed for shortness of breath Active melatonin 5 mg Tab Take 5 mg by mouth nightly at bedtime as needed. 01/19/20 21 Active omeprazole (PRILOSEC) 20 MG capsule Take 1 capsule by mouth daily as needed. 06/20/20 23 Active diclofenac sodium (VOLTAREN) 75 MG EC tabletIndications :Intractable migraine with aura with status migrainosus Take 1 tablet (75 mg total) by mouth 2 (two) times a day as needed (Migraine). 30 tablet 5 06/05/20 24 Active EMGALITY PEN 120 mg/mL subcutaneous injectionIndicati ons:Intractable migraine with aura with status migrainosus ADMINISTER 1 ML(120 MG) UNDER THE SKIN EVERY 30 DAYS 1 mL 11 08/31/20 25 Active albuterol 90 mcg/actuation inhaler Inhale 2 puffs into the lungs every 4 (four) hours as needed for wheezing. 07/16/20 25 Active estradioL (ESTRACE) 0.01 % (0.1 mg/gram) vaginal cream APPLY A PEA-SIZED AMOUNT WITH FINGERTIP VAGINALLY EVERY NIGHT AT BEDTIME 08/28/20 25 Active DULoxetine (CYMBALTA) 20 MG capsule Take 20 mg by mouth nightly at bedtime. 09/07/20 25 Active mirabegron (MYRBETRIQ) 50 mg Tb24 08/21/20 25 Active dicyclomine (BENTYL) 10 MG capsule 08/13/20 25 Active fremanezumab-vfrm (AJOVY AUTOINJECTOR) 225 mg/1.5 mL subcutaneous auto-injectorIndi cations:Intractab le migraine with aura with status migrainosus Inject 1.5 mL (225 mg total) under the skin every 28 days. 1.5 mL 11 09/21/20 25 Active rizatriptan (MAXALT-CLINICAL IMMUNOLOGIST) 10 MG disintegrating tabletIndications :Intractable migraine with aura with status migrainosus DISSOLVE 1 TABLET UNDER THE TONGUE NEEDED FOR MIGRAINE, MAY REPEAT IN 2 HOURS IF NEEDED, NOT TO EXCEED 20 MG IN ONE DAY 9 tablet 11 10/13/20 25 Active rizatriptan (MAXALT-CLINICAL IMMUNOLOGIST) 10 MG disintegrating tabletIndications :Intractable migraine with aura with status migrainosus Take 1 tablet (10 mg total) by mouth as needed for migraine. May repeat in 2 hours if needed. Do not exceed 20mg in a day. 9 tablet 11 10/03/20 24 2024 Discontinued Active Problems Problem Noted Date Diagnosed Date Elbow pain 10/13/2010 Overview (01/02/2015): Elbow pain Encounters Date Type Department Care Team Description 10/11/2025 Refill [facility] Neurology [address] [place] [address] Mekhi Vernon MD Medication Refill 09/21/2025 10:30 AM EST Office Visit [facility] Neurology [address] [place] [address] Maria Antonia Guadalupe FNP Intractable migraine with aura with status migrainosus (Primary Dx) 09/21/2025 Telephone [facility] [address] [place] [address] [place] [address] Mekhi Vernon MD Medication Prior Authorization (PA for fremanezumab-vfrm (AJOVY AUTOINJECTOR) 225 mg/1.5 mL subcutaneous auto-injector) 08/31/2025 Telephone [facility] Neurology [address] [place] [address] Mekhi Vernon MD Medication Prior Authorization (PA for EMGALITY PEN 120 mg/mL subcutaneous injection) 08/29/2025 Refill [facility] Neurology [address] [place] [address] Mekhi Vernon MD Medication Refill from Last 3 Months Immunizations Immunization Administration Dates Next Due COVID-19 [...] Sign Reading Time Taken Comments Blood Pressure 128/70 09/21/2025 10:07 AM EST Pulse 90 09/21/2025 10:07 AM EST Temperature 37.2 C (99 F) 01/29/2020 6:28 PM EDT Respiratory Rate 20 01/29/2020 5:56 PM EDT Oxygen Saturation 99% 09/21/2025 10:07 AM EST Inhaled Oxygen Concentration - - Weight 66.7 kg (147 lb 0.8 oz) 01/29/2020 5:56 P M EDT Height 162.6 cm (5' 4 ) 01/29/2020 5:56 PM EDT Body Mass Index 25.24 01/29/2020 5:56 PM EDT Plan of Treatment Upcoming Encounters Date Type Department Care Team (Late st Contact Info) Description 03/22/2026 10:00 AM EDT Office Visit [facility] Neurology [facility] [address] [place] [address] Maria Antonia Guadalupe FNP [address] [facility], 2nd [place] [address] [email or web address] Health Maintenance Due Date Last Done Comments SMOKING Hx and SMOKELESS TOBACCO SCREENING 1985 HIV ONE-TIME SCREENING (18-65 YEARS) 1990 PNEUMOCOCCAL VACCINES (50+ years) (2 of 2 - PCV) 02/07/2017 02/08/2016 FIT TEST 2017 SIGMOIDOSCOPY 2017 VIRTUAL COLONOSCOPY 2017 FOBT 12/03/2018 12/03/2017 ZOSTER VACCINES (1 of 2) 2022 DEPRESSION SCREENING 05/01/2023 05/01/2022 INFLUENZA VACCINE (#1) 2025 8, 11/29/2017, 07/14/2016, Additional history exists COVID-19 VACCINE ( season) 2025 10/26/2021, 04/02/2021 MAMMOGRAM 08/22/2027 08/22/2025 COLONOSCOPY 02/01/2028 01/31/2018 PAP SMEAR 06/30/2028 06/30/2025, 07/0 06/2019, 06/17/1996 COLOGUARD 07/11/2028 07/11/2025 COLORECTAL CANCER SCREENING 07/11/2028 LIPID PANEL 03/06/2029 03/06/2024, 12/01/2022 Adult Td,Tdap Booster 06/19/2035 06/19/2025, 015 RSV VACCINE (1 - 1-dose 75+ series) [...] SEE NARRATIVE - 05/23/2019 3:05 PM EDT [address] [address] Under Trimmer: Brittani Akins MD CHEMICAL LABORATORY SCIENTIST Cytology Report FINAL DIAGNOSIS A. PAP SMEAR [...] 52, 56, 58, 59, 66, 68) by [employer] Onclarity HR-HPV analysis. Clinical correlation is advised. This HPV test was performed at [facility], [address] [place] [address]. This test has been FDA approved for SurePath cervical cytology specimens. The accuracy and precision of this test for all other specimen sources has been verified in the Cytopathology Laboratory of the [facility] and has not been cleared or approved by the U.S. Food and Drug Administration. Clinical correlation is advised. CLINICAL HISTORY Date of Last Menstrual Period: Not Provided Menstrual History: Post Menopausal Other Clinical Conditions: Screening Pap SPECIMEN SOURCE A: PAP SMEAR (SUREPATH) CE Patient Name: KARI TOLEDO. : 1970 (Age: 49) Sex: F Institution: [facility] Location: [facility] Date of Collection: 05/19/2019 Date of Reported: 05/23/2019 09:16 Results to: Matthias Gunter us Matthias Gunter MD CYTOLOGY ORDERABLE S Edited Result - Final SEE NARRATIVE * ENDOSCOPY, COLON (01/31/2018 10:38 AM EDT) Narrative Transcriptions Francisco West MD - 01/31/2018 10:38 AM EDT Patient Name: Kari Toledo Attending MD:: FRANCISCO WEST MD Procedure Date: 01/31/2018 10:38 AM Date of : 1970 Age: 47 Admit Type: Outpatient Gender: Female Room: [place] [address] Referring MD: Matthias Gunter MD Exam Type: [...] monitored continuously. The Olympus adult variable colonoscope CF-[id number] #5 was introduced through the anus and [...] colonoscopy in 10 years for screeningpurposes. FRANCISCO WEST MD 01/31/2018 11:12:54 AM This report has been signed electronically. Number of Addenda: 0 Note Initiated On: 01/31/2018 10:38 AM Procedure Code(s): --- Professional --- 73865, Colonoscopy, flexible; with biopsy, single or multiple --- Technical --- 14633, Colonoscopy, flexible; with biopsy, single or multiple Diagnosis Code(s): --- Professional --- R19.7, Diarrhea, unspecified --- Technical --- R19.7, Diarrhea, unspecified CPT copyright 2016 [employer]. All rights reserved. The codes documented in this report are preliminary and upon electrical equipment technician reviewmay be revised to meet current compliance requirements. [address] [place] [address] us Matthias Gunter MD GI PROCEDURE ORDER RIK Final Result * Fecal occult blood, multiple (12/03/2017 2:15 PM EST) FECAL OCC BLD 1 DATE [facility] Occult bld, stool, #1 Negative Negative [facility] Stool (Stool) 12/03/2017 2:1 5 PM EST 12/03/2017 2:18 PM EST Luzma Canseco PA-C BODY FLUIDS AND STOOLS ORDERABL ES Final Result [facility] [address] [place], [place] [phone] from Last 3 Months or Most Recently Relevant to Health Maintenance Insurance MEDICARE PART A & B [facility] ONE CARE MEDICARE REPLACEMENT ALYSSA MARY [id number] MEDICARE PART A & B CARE MEDICARE REPLACEMENT ALYSSA MARY [address]92 MEDICARE PART A & B Member Subscriber Plan / Payer (Ef fective 2024-Present) Name:Kari Toledo Member ID:[id number] Relation to Subscriber:Self Name:Kari Toledo Subscriber ID:[id number] Payer ID:[id number] Group ID:Not on file Type:Medicare Address: [employer] [address] ONE CARE MEDICARE REPLACEMENT MEDICARE PART A & [place] [address] [place] [address] MEDICARE REPLACEMENT MEDICARE PART A & B Member Subscriber Plan / Payer (Ef fective 2024-) Name:Kari Toledo Member ID:[id number] Relation to Subscriber:Self Name:Kari Toledo Subscriber ID:[id number] Payer ID:[id number] Group ID:Not on file Type:Medicare Address: [employer] 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 Friend Alternate H ealthcare Agent (Proxy form on file) Bela Toledo Daughter .Primary Health Care Agent (Proxy form on file) Care Teams Strip Machine Operator Relationship Specialty Start Date End Date Matthias Barber MD [address] [place] [phone] [email or web address] PCP - General Family Medicine 01/11/20 Additional Source Comments The information contained in this document represents components of the legal health record. It is not the complete legal health record.[facility]
--- OUTSIDE RECORDS SUMMARY | 2025-11-03 10:30 | XMS_ITS | Encounter Summary ---
Author Organization [employer] Address [address] [place] [address] 7 [place] [address] Care Team Providers Care Mixed Crop Farmer Name Role Phone Linda Leahy MD Primary Care Provider [phone] Reason for Visit * Reason Comments Med Refill Encounter Details Date Type Department Care Team ([facility] Contact Info) Description 10/15/2025 Refill [facility] MED & PEDS [address] [place] [address] Linda Leahy MD [address] [place] [address] Social History Tobacco Use Types Packs/Day Years [...] Assessment Noted Time PHQ-9 Depression Total Score: 3 10/12/20 25 1:49 PM EST documented as of this encounter Care Teams Mixed Crop Farmer Relationship Specialty Start Date End Date Linda Leahy MD [address] [place] [address] PCP - General Family Medicine 07/19/23 Venus Ardon Psychiatrist 10/12/25 documented as of this encounter
--- OUTSIDE RECORDS SUMMARY | 2025-11-03 10:31 | XMS_ITS | Encounter Summary ---
Author Organization [facility] Address [address] [facility] [address] [place] [address] Phone Care Team Providers Care Gun Mechanic Name Role Phone Matthias Barber MD Primary Care Prov ider Pcp, Unknown Unavailable Unavailable Marko Manriquez DO Unavailable Matthias Barber MD Unavailable + Zia Brown MD Unavailable Pcp, Unknown Primary Care Provider Unavailabl e Matthias Barber MD Primary Care Prov ider Matthias Barber MD Unavailable + Farhan JacksonSW Unavailable [phone] Encounter Details Date Type Department Care Team (Latest Contact Info) Description 12/03/2017 Transcribe Orders [facility] [address] [facility] [address]nd [place], [place] [phone] Luzma Canseco PA-C [address] [place] [address] Diarrhea, unspecified type (Primary Dx) Social History [...] Description 03/22/2026 10:00 AM EDT Office Visit [facility] [address] [place] [address] Maria Antonia Guadalupe FNP [address] [facility], 2nd [place] [address] [email or web address] documented as of this encounter Results * Fecal occult blood, multiple (12/03/2017 2:15 PM EST) FECAL OCC BLD 1 DATE [facility] Occult bld, stool, #1 Negative Negative [facility] Stool (Stool) 12/03/2017 2:1 5 PM EST 12/03/2017 2:18 PM EST Luzma Canseco PA-C BODY FLUIDS AND STOOLS ORDERABL ES Final Result [facility] [address] [place] [address] * C. difficile PCR (12/03/2017 2:15 PM EST) C.DIFFICILE PCR Negative Negative [facility] C.DIFFICILE STRAIN PRESUMPTIVE NEGATIVE PRESUMPTIVE NEGATIVE [facility] Comment:Detection of 027/NAP 1/BI strains of C.difficile is presumptive and is solely for epidemiological purposes and is not intended to guide or monitor treatment of infections. Stool (Stool) 12/03/2017 2:1 5 PM EST 12/03/2017 2:19 PM EST us Luzma Canseco PA-C LAB BODY FLUIDS AND STOOL ORDER RIK Final Result [facility] [address] [place] [address] * Calprotectin, stool (12/03/2017 2:15 PM EST) CALPROTECTIN 16.0 <=50.0 (Normal) mcg/g [facility] DPT OF LAB MED AND PAT+ Stool (Stool) 12/03/2017 2:1 5 PM EST 12/03/2017 2:18 PM EST us Luzma Canseco PA-C LAB BODY FLUIDS AND STOOL ORDER RIK Final Result Performing Organization Address City/[facility]/ZIP Co de Phone Number [facility] DPT OF LAB MED AND PAT+ [address] [place] [address] documented in this encounter Visit Diagnoses Diagnosis Diarrhea, unspecified type- Primary documented in this encounter Care Teams Gun Mechanic Relationship Specialty Start Date End Date Matthias Barber MD [email or web address] PCP - General 01/14/16 08/31/19 Pcp, Unknown PCP - General 09/01/19 01/10/20 Matthias Barber MD [address] [place] [address] [email or web address] PCP - General Family Medicine 01/11/20 Pcp, Unknown 01/14/16 01/29/20 Marko Manriquez DO [address] [place] [address] Orthopedics & Sports Medicine, [place] [address] Historical LMR Provider 08/29/17 09/20/25 Matthias Barber MD [address] [place] [address] [email or web address] Historical LMR Provider 08/29/17 11/19/21 Zia Brown MD [address] [place] [phone] [email or web address] Historical LMR Provider 08/29/17 11/19/21 Matthias Barber MD [address] [place] [address] [email or web address] Insurance Assigned Provider 12/18/21 05/19/23 Farhan Jackson LICSW [address] [place] [id number] [email or web address] Short Story Writer 05/01/22 07/31/22 documented as of this encounter Additional Source Comments The information contained in this document represents components of the legal health record. It is not the complete legal health record.[facility]
--- OUTSIDE RECORDS SUMMARY | 2025-11-03 10:31 | XMS_ITS | Encounter Summary ---
Author Organization [employer] Address [address] [place] [address] 7 [place] [address] Care Team Providers Care Overhead Crane Operator Name Role Phone Linda Leahy MD Primary Care Provider [phone] Reason for Visit * Reason Onset Date Comments Referral 09/03/2023 Encounter Details Date Type Department Care Team ([facility] Contact Info) Description 09/03/2023 Telephone [facility] CHC MED & PEDS [address] [place] [address] Linda Leahy MD [address] [place] [address] Referral Social History Tobacco Use Types Packs/Day [...] Miscellaneous Notes * Telephone Encounter - Mary Jane Redd - 10/08/2023 2:00 PM EST Referral faxed to [facility] * Telephone Encounter - Lanette Little - 10/08/2023 1:06 PM EST Tc from kathy with [facility] requesting a referral for pt. Would like referral to be will 60 visits starting from 08/30/23-08/30/24 Location: [address] [place], [place] [address] Date: n/a Time: n/a Specialty: physical therapy for both knees * Telephone Encounter - Lanette Little - 09/03/2023 4:15 PM EDT Tc from pt requesting a call in regards to ortho referral for both knees. Please contact pt at [phone] documented in this encounter Plan of Treatment Not on file documented as of this encounter Visit Diagnoses Not on filedocumented in this encounter Additional Health Concerns Assessment Noted Time PHQ-9 Depression Total Score: 22 023 1:16 PM EDT documented as of this encounter Care Teams Overhead Crane Operator Relationship Specialty Start Date End Date Linda Leahy MD [address] [place] [address] PCP - General Family Medicine 07/19/23 Venus Ardon Psychiatrist 10/12/25 documented as of this encounter
--- OUTSIDE RECORDS SUMMARY | 2025-11-03 10:31 | XMS_ITS | Encounter Summary ---
Author Organization [employer] Address [address] [place] [address] 7 [place] [address] Care Team Providers Care Free Lance Artist Name Role Phone Linda Leahy MD Primary Care Provider [phone] Reason for Visit * Reason Onset Date Comments New Patient Appt 06/14/2023 Encounter Details Date Type Department Care Team ([facility] st Contact Info) Description 06/14/2023 Telephone [facility] [address] [place] [address] Juliocesar Hernandez MD [address] [place] [address] New Patient Appt Social History Tobacco Use [...] PAR Laury Hart called pt to Offer UI DEVELOPER WITH ANGULAR JS appt. Pt demographics and insurance information were [...] Xopenex HFA 45 MCG/ACT inhaler. Pt given UI DEVELOPER WITH ANGULAR JS appt with Dr. Linda Leahy on 07/19/2023 @ 1:00 pm. Pt will be sent appt reminder card and medical release form and agrees to complete and to return to medical records prior to UI DEVELOPER WITH ANGULAR JS appt. * Telephone Encounter - Laury Vance - 06/14/2023 9:45 AM EDT New Patients Par Laury Hart called to schedule New patient appt, pt did not answer left voicemail to give a call at [phone]. documented in this encounter Plan of Treatment Not on file documented as of this encounter Visit Diagnoses Not on filedocumented in this encounter Additional Health Concerns Assessment Noted Time PHQ-9 Depression Total Score: 21 023 11:16 AM EDT documented as of this encounter Care Teams Free Lance Artist Relationship Specialty Start Date End Date Linda Leahy MD [address] [place] [address] PCP - General Family Medicine 07/19/23 Venus Adron Psychiatrist 10/12/25 documented as of this encounter
--- OUTSIDE RECORDS SUMMARY | 2025-11-03 10:31 | XMS_ITS | Encounter Summary ---
Author Organization [facility] Address [address] [facility] [address] [place] [address] Phone Care Team Providers Care Instructional Technology Facilitator Name Role Phone Matthias Barber MD Primary Care Prov ider Pcp, Unknown Unavailable Unavailable Marko Manriquez DO Unavailable Matthias Barber MD Unavailable + Zia Brown MD Unavailable [phone] Pcp, Unknown Primary Care Provider Unavailabl e Matthias Barber MD Primary Care Prov ider Matthias Barber MD Unavailable + Farhan JacksonSW Unavailable [phone] Encounter Details Date Type Department Care Team (Latest Contact Info) Description 11/28/2017 Transcribe Orders [facility] Phleb [facility]ul [address] [facility] [address]nd [place], [place] [id number] Luzma Canseco PA-C [address], [address] [place] [address] Diarrhea, unspecified type (Primary Dx) Social History [...] Description 03/22/2026 10:00 AM EDT Office Visit [facility] [address] [place] [address] Maria Antonia Guadalupe FNP [address] [facility], [address]nd [place] [address] [email or web address] documented as of this encounter Results * C-Reactive Protein (11/28/2017 11:14 AM EST) C REACTIVE PROTEIN 0.1 0 - 0.5 mg/L [facility] Blood 11/28/2017 11:1 4 AM EST 11/28/2017 11:22 AM EST us Luzma Canseco PA-C LAB BLOOD BKR ORDERABLES Final Result [facility] [address] [place] [address] * (ABNORMAL) Comprehensive metabolic panel (11/28/2017 11:14 AM EST) SODIUM 143 133 - 146 mmol/L [facility] POTASSIUM 4.3 3.3 - 5.1 mmol/L [facility] CHLORIDE 105 96 - 108 mmol/L [facility] CO2 24 21 - 35 mmol/L [facility] BUN 25(H) 6 - 19 mg/dL [facility] CREATININE 0.70 0.5 - 1.5 mg/dL [facility] GLUCOSE 95 70 - 99 mg/dL [facility] ALBUMIN 4.7 3.9 - 4.8 g/dL [facility] TOTAL PROTEIN 7.4 6.5 - 8.0 g/dL [facility] CALCIUM 9.2 8.4 - 10.3 mg/dL [facility] ALKALINE PHOSPHATASE 78 39 - 117 U/L [facility] TOTAL BILIRUBIN 0.2 0 - 1.2 mg/dL [facility] AST 17 0 - 37 U/L [facility] ALT 19 0 - 40 U/L [facility] GLOBULIN 2.7 1 - 4.8 g/dL [facility] EGFR >60 >60 mL/min/1.7 3m2 [facility] Comment:Abnormal if <60. If patient is -Citizen Of [place], multiply the result by 1.21. ANION GAP 18 10 - 20 mmol/L [facility] Blood 11/28/2017 11:1 4 AM EST 11/28/2017 11:22 AM EST us Luzma Canseco PA-C LAB BLOOD BKR ORDERABLES Final Result Performing Organization Address City/State/[facility] Co de Phone Number [facility] [address] [place] [address] * (ABNORMAL) CBC and differential (11/28/2017 11:14 AM EST) WBC 7.62 3.40 - 11.20 K/uL [facility] RBC 5.26(H) 3.80 - 4.80 M/uL [facility] HGB 14.4 12.0 - 15.0 g/dL [facility] HCT 44.9 36.0 - 46.0 % [facility] PLT 268 130 - 400 K/uL [facility] MCV 85.4 79.0 - 98.0 fL [facility] MCH 27.4 27.0 - 34.8 pg [facility] MCHC 32.1 31.5 - 36.0 g/dL [facility] RDW 13.5 10.8 - 14.6 % [facility] MPV 11.1 9.4 - 12.4 [facility] NRBC 0.00 /100 WBCs [facility] ABSOLUTE NRBC 0.00 K/uL [facility] DIFF METHOD Auto [facility] NEUTS 58.2 45.30 - 77.70 % [facility] LYMPHS 32.2 12.30 - 39.70 % [facility] MONOS 6.4 4.10 - 12.80 % [facility] EOS 2.6 0 - 7.2 % [facility] BASOS 0.5 0 - 2.80 % [facility] Granulocytes, immature (%) 0.1 0.0 - 0.9 % [facility] ABSOLUTE NEUTS 4.43 1.40 - 7.70 K/uL [facility] ABSOLUTE LYMPHS 2.45 0.60 - 3.20 K/uL [facility] ABSOLUTE MONOS 0.49 0.11 - 0.59 K/uL [facility] ABSOLUTE EOS 0.20 0.01 - 0.50 K/uL [facility] ABSOLUTE BASOS 0.04 0.00 - 0.08 K/uL [facility] Granulocytes, immature 0.01 0.00 - 0.05 K/uL [facility] Blood 11/28/2017 11:1 4 AM EST 11/28/2017 11:22 AM EST us Luzma Canseco PA-C LAB BLOOD BKR ORDERABLES Final Result [facility] [address] [place] [address] * Tissue transglutaminase IgA (11/28/2017 11:14 AM EST) TTG IGA ANTIBODY <1.2 <4.0 (Negative) U/mL [facility] DPT OF LAB MED AND PAT+ Blood 11/28/2017 11:1 4 AM EST 11/28/2017 11:22 AM EST Luzma Canseco PA-C LAB BLOOD BKR ORDERABLES Final Result [facility] DPT OF LAB MED AND PAT+ [address] [place] [address] * Immunoglobulin A (11/28/2017 11:14 AM EST) IgA 103 70 - 400 mg/dL [facility] Blood 11/28/2017 11:1 4 AM EST 11/28/2017 11:22 AM EST us Luzma Canseco PA-C LAB BLOOD BKR ORDERABLES Final Result [facility] [address] [place] [address] documented in this encounter Visit Diagnoses Diagnosis Diarrhea, unspecified type- Primary documented in this encounter Care Teams Instructional Technology Facilitator Relationship Specialty Start Date End Date Matthias Barber MD [email or web address] PCP - General 01/14/16 08/31/19 Pcp, Unknown PCP - General 09/01/19 01/10/20 Matthias Barber MD [address] [place] [phone] [email or web address] PCP - General Family Medicine 01/11/20 Pcp, Unknown 01/14/16 01/29/20 Marko Manriquez DO [address] [place] [address] Orthopedics & Sports Medicine, [place] [address] Historical LMR Provider 08/29/17 09/20/25 Matthias Barber MD [address] [place] [address] [email or web address] Historical LMR Provider 08/29/17 11/19/21 Zia Brown MD [address] [place] [address] [email or web address] Historical LMR Provider 08/29/17 11/19/21 Matthias Barber MD [address] [place] [address] [email or web address] Insurance Assigned Provider 12/18/21 05/19/23 Farhan Jackson [address] [address] [email or web address] Service Delivery Supervisor 05/01/22 07/31/22 documented as of this encounter Additional Source Comments The information contained in this document represents components of the legal health record. It is not the complete legal health record.[facility]
--- OUTSIDE RECORDS SUMMARY | 2025-11-03 10:31 | XMS_ITS | Encounter Summary ---
Author Organization [employer] Address [address] [place] [address] 7 [place] [address] Care Team Providers Care Cable Coverer Name Role Phone Linda Leahy MD Primary Care Provider [phone] Reason for Visit * Reason Comments Med Refill Encounter Details Date Type Department Care Team ([facility] Contact Info) Description 05/06/2024 Refill [facility] CHC MED & PEDS [address] [place] [address] Linda Leahy MD [address] [place] [address] Social History Tobacco Use Types Packs/Day Years [...] documented as of this encounter Care Teams Cable Coverer Relationship Specialty Start Date End Date Linda Leahy MD [address] [place] [address] PCP - General Family Medicine 07/19/23 Venus Ardon Psychiatrist 10/12/25 documented as of this encounter
--- OUTSIDE RECORDS SUMMARY | 2025-11-03 10:31 | XMS_ITS | Encounter Summary ---
Author Organization [facility] Address [email or web address] [facility] [address] [place] [address] Phone Care Team Providers Care Sales Clerk Name Role Phone Matthias Barber MD Primary Care Prov ider Pcp, Unknown Unavailable Unavailable Marko Manriquez DO Unavailable Matthias Barber MD Unavailable + Zia Brown MD Unavailable [phone] Pcp, Unknown Primary Care Provider Unavailabl e Matthias Barber MD Primary Care Prov ider Matthias Barber MD Unavailable + Farhan JacksonSW Unavailable [phone] Encounter Details Date Type Department Care Team (Late st Contact Info) Description 07/09/2016 Ophth Exam [facility] [address] [place] [address] Junior Tejada MD [address] [place] [address] Social History Tobacco Use Types Packs/Day Years [...] Description 03/22/2026 10:00 AM EDT Office Visit [facility] [address] [place] [address] Maria Antonia Guadalupe FNP [address] [facility], [address] [place] [address] documented as of this encounter Visit Diagnoses Not on filedocumented in this encounter Care Teams Sales Clerk Relationship Specialty Start Date End Date Matthias Barber MD [email or web address] PCP - General 01/14/16 08/31/19 Pcp, Unknown PCP - General 09/01/19 01/10/20 Matthias Barber MD [address] [place] [address] [email or web address] PCP - General Family Medicine 01/11/20 Pcp, Unknown 01/14/16 01/29/20 Marko Manriquez DO 4 [facility] Medicine, [facility] [place] [address] Historical LMR Provider 08/29/17 09/20/25 Matthias Barber MD [address] [place] [address] [email or web address] Historical LMR Provider 08/29/17 11/19/21 Zia Brown MD [address] [place] [address] [email or web address] Historical LMR Provider 08/29/17 11/19/21 Matthias Barber MD [address] [place] [address] [email or web address] Insurance Assigned Provider 12/18/21 05/19/23 Farhan Jackson LICSW [address] [place] [address] Oil Well Service Operator Helper 05/01/22 07/31/22 documented as of this encounter Additional Source Comments The information contained in this document represents components of the legal health record. It is not the complete legal health record.[facility]
--- OUTSIDE RECORDS SUMMARY | 2025-11-03 10:31 | XMS_ITS | Encounter Summary ---
Author Organization [employer] Address [address] [place] [address] 7 [place] [address] Care Team Providers Care Mirror Finishing Machine Operator Name Role Phone Linda Leahy MD Primary Care Provider [phone] Reason for Visit * Reason Comments Med Refill Encounter Details Date Type Department Care Team ([facility] Contact Info) Description 08/03/2025 Refill [facility] CHC MED & PEDS [address] [place] [address] Linda Leahy MD [address] [place] [address] Reactive airway disease without complication, unspecified asthma [...] documented as of this encounter Care Teams Mirror Finishing Machine Operator Relationship Specialty Start Date End Date Linda Leahy MD [address] [place] [address] PCP - General Family Medicine 07/19/23 Venus Ardon Psychiatrist 10/12/25 documented as of this encounter
--- OUTSIDE RECORDS SUMMARY | 2025-11-03 10:31 | XMS_ITS | Encounter Summary ---
Author Organization [facility] Address [address] [facility] [address] [place] [address] Phone Care Team Providers Care Call Center Assistant Name Role Phone Matthias Barber MD Primary Care Prov ider Pcp, Unknown Unavailable Unavailable Marko Manriquez DO Unavailable [phone] Matthias Barber MD Unavailable + Zia Brown MD Unavailable [phone] Pcp, Unknown Primary Care Provider Unavailabl e Matthias Barber MD Primary Care Prov ider Matthias Barber MD Unavailable + Farhan JacksonSW Unavailable [phone] Encounter Details Date Type Department Care Team (Late st Contact Info) Description 01/31/2018 Procedure Pass [facility] Endoscopy Admitting Dept Virtual Department [address] [place] [address] Social History Tobacco Use Types [...] 03/22/2026 10:00 AM EDT Office Visit [facility] [address] [place] [address] Maria Antonia Guadalupe, RISK CONSULTANT [address] [facility], 2nd [place] [address] documented as of this encounter Visit Diagnoses Not on filedocumented in this encounter Care Teams Call Center Assistant Relationship Specialty Start Date End Date Matthias Barber MD [email or web address] PCP - General 01/14/16 08/31/19 Pcp, Unknown PCP - General 09/01/19 01/10/20 Matthias Barber MD [address] [place] [address] [email or web address] PCP - General Family Medicine 01/11/20 Pcp, Unknown 01/14/16 01/29/20 Marko Manriquez DO [address] [place] [address] Orthopedics & Sports Medicine, [facility] [place] [address] Historical LMR Provider 08/29/17 09/20/25 Matthias Barber MD [address] [place] [address] [email or web address] Historical LMR Provider 08/29/17 11/19/21 Zia Brown MD [address] [place] [address] [email or web address] Historical LMR Provider 08/29/17 11/19/21 Matthias Barber MD [address] [place] [address] [email or web address] Insurance Assigned Provider 12/18/21 05/19/23 Farhan Jackson LICSW [address] [place] [address] [email or web address] Driver Examiner 05/01/22 07/31/22 documented as of this encounter Additional Source Comments The information contained in this document represents components of the legal health record. It is not the complete legal health record.[facility]
--- OUTSIDE RECORDS SUMMARY | 2025-11-03 10:31 | XMS_ITS | Encounter Summary ---
Author Organization [employer] Address [address] [place] [address] 7 [place] [address] Care Team Providers Care Paid Search Manager Name Role Phone Linda Leahy MD Primary Care Provider [phone] Reason for Visit * Reason Comments Med Refill Encounter Details Date Type Department Care Team ([facility] Contact Info) Description 07/22/2025 Refill [facility] CHC MED & PEDS [address] [place] [address] Linda Leahy MD [address] [place] [address] Social History Tobacco Use Types Packs/Day Years [...] documented as of this encounter Care Teams Paid Search Manager Relationship Specialty Start Date End Date Linda Leahy MD [address] [place] [phone] PCP - General Family Medicine 07/19/23 Venus Ardon Psychiatrist 10/12/25 documented as of this encounter
== END 2025-11-03 10:39 | disposition home or self-care (01) ==
LOC: HO.HGI 09:40
PROVIDERS: PCP Family Medicine; Visit Provider Nurse Practitioner Family
DX: R15.9 Full incontinence of feces (principal); R15.2 Fecal urgency; K21.9 Gastro-esophageal reflux disease without esophagitis; N81.10 Cystocele, unspecified
CPT/HCPCS: 99204

== ENCOUNTER 2025-11-03 09:39 | Outpatient (REF) | payer OTHER, SELFPAY ==
[2025-11-03 12:33] LABS: Alanine Aminotransferase 39 U/L (0-31); Albumin Level 4.8 g/dL (3.5-5.0); Alkaline Phosphatase 70 U/L (39-117); Aspartate Amino Transferase 21 U/L (5-31); Total Protein 7.0 g/dL (6.5-8.0)
== END 2025-11-03 09:40 | disposition home or self-care (01) ==
LOC: HO.LAB 09:39
PROVIDERS: PCP Family Medicine; Visit Provider Nurse Practitioner Family
DX: R15.2 Fecal urgency (principal); K21.9 Gastro-esophageal reflux disease without esophagitis; N81.10 Cystocele, unspecified; Z12.11 Encounter for screening for malignant neoplasm of colon; Z79.899 Other long term (current) drug therapy
CPT/HCPCS: 80076; 86140; 86364